=== PATIENT | female | born 1960 | race Caucasian/White ===

== ENCOUNTER 2019-01-13 10:40 | Outpatient (CLI) | payer MEDICARE, MEDICAID, SELFPAY ==
--- NOTE | 2019-01-13 10:34 | DI.RAD_ITS ---
SYMPTOMS/DIAGNOSIS: PAIN RIGHT KNEE: Comparison is made with [id number]. Since the previous exam, there is now narrowing of moderate to severe degree of the lateral femoral tibial joint space. There is periarticular spurring as well as sclerosis. The medial femoral tibial joint space is well maintained and shows no significant spurring. There is mild spurring at the articular aspect of the patella. A joint effusion is seen. IMPRESSION: Moderate to severe degenerative changes of the lateral femoral tibial joint. Mild patellofemoral joint degenerative changes.
== END 2019-01-13 11:00 ==
PROVIDERS: PCP Family Medicine; Referring Provider Family Medicine; Visit Provider Orthopaedic Surgery
DX: M25.561 Pain in right knee (principal); M17.11 Unilateral primary osteoarthritis, right knee; G43.009 Migraine without aura, not intractable, without status migrainosus
CPT/HCPCS: 20610; 64405; 99211; 99212; 73560; J1040

== ENCOUNTER 2019-03-04 11:38 | Outpatient (CLI) | payer MEDICARE, MEDICAID, SELFPAY ==
--- NOTE | 2019-03-04 06:00 | DI.RAD_ITS ---
SYMPTOM/DIAGNOSIS: SACROILIAC JOINT DYSFUNCTION PAIN CLINIC: Fluoroscopy Time: 25.0 seconds/6.61mGy Images submitted from the Pain Clinic demonstrate needle localization over the right SI joint in conjunction with an injection carried out by Dr. Garrison. Please see the procedure report for further information.
[2019-03-04 12:23] VITALS: BP 145/85; PULSE 65; RESP 18; TEMP 36.8; O2SAT 97
[2019-03-04] MEDS: Bupivacaine 0.5% Pres-Free 10 ML VIAL IJ (12:33)
[2019-03-04] MEDS: methylPREDNISolone ACETATE 80 MG/ML VIAL IJ (12:41)
[2019-03-04] MEDS: Omnipaque 240 MG/ML 50 ML BTL IJ (12:41)
--- NOTE | 2019-03-04 12:42 | PDOC.PAIN ---
Pain Clinic Procedure Note Current Active Problems Problem Status Onset Sacroiliac joint dysfunction of right side Chronic INTRA-ARTICULAR SI JOINT INJECTION MERI HUTCHINSON has been referred to the [facility] for intra-articular SI joint injection. COMMENTS: Patient had multiple injections including several facet injections as well as SI joint injections on the right side. Her last one was approximately a year ago. Patient was interviewed and the medical record reviewed. There were no medical, pharmacologic, radiographic or other structural contraindications to attempting fluoroscopically guided intra-articular SI joint injection. Risks and expected side effects as well as potential benefit of the procedure were reviewed and voiced concerns addressed. The printed consent form was signed and witnessed. Standard time-out procedure was performed. Patient was placed in the prone position on the fluoroscopy table and automated blood pressure cuff and pulse oximeter applied. The skin entry point for approaching {right/ } SI joints was identified under the most advantageous fluoroscopic view and marked. Following thorough Chlorhexadine preparation of the skin and draping and 1% lidocaine infiltration of the skin entry point and subcutaneous tissues, a 22 gauge spinal needle was placed under fluoroscopic guidance into {right/ } SI joints was identified under the most advantageous fluoroscopic view and marked. Following thorough Chlorhexadine preparation of the skin and draping and 1% lidocaine infiltration of the skin entry point and subcutaneous tissues, a 22 gauge spinal needle was placed under fluoroscopic guidance into { right/ } SI joint. Intra-articular placement was confirmed by a clear arthrogram resulting from the injection of 0.25ml Omnipaque 240, 1ml 0.5% bupivacaine, and half ml (40mg) of 80mg concentration Depomedrol were injected intra-articularily with an initial reproduction of a significant component of the usual pain. Vital signs were stable throughout the procedure and were as recorded in the docflowsheet by the nursing staff. If given, dosages of intravenous drugs for anxiolysis and analgesia were documented in MAR. Follow up plans and appointments were discussed with the patient. Post procedure instruction was given as documented in nursing documentation and having met discharge criteria, and was discharged from the [facility]. COMMENTS: Pain went 07/02 to 01/30. Pt will f/u prn. Plan for genicular N block Right. Consider L SI inj CC: [employer] Ayou[employer]
[2019-03-04 12:45] VITALS: BP 145/85; PULSE 65; RESP 18; O2SAT 97
== END 2019-03-04 11:58 ==
PROVIDERS: PCP Family Medicine; Visit Provider Anesthesiology Pain Medicine
DX: M53.3 Sacrococcygeal disorders, not elsewhere classified (principal)
CPT/HCPCS: 27096; 72200; J1040; Q9967

== ENCOUNTER 2019-03-17 08:08 | Outpatient (CLI) | payer MEDICARE, MEDICAID, SELFPAY ==
--- NOTE | 2019-03-17 06:00 | DI.RAD_ITS ---
SYMPTOMS/DIAGNOSIS: KNEE PAIN C-ARM FLUOROSCOPY OF THE RIGHT KNEE: Fluoroscopy Time: 28.6 sec Fluoroscopy was provided for guidance with pain clinic injection. Please see procedure note for details.
[2019-03-17 08:20] VITALS: BP 109/71; PULSE 60; RESP 20; TEMP 36.6; O2SAT 95
[2019-03-17] MEDS: Omnipaque 240 MG/ML 50 ML BTL IJ (09:16)
[2019-03-17] MEDS: Bupivacaine 0.5% Pres-Free 10 ML VIAL IJ (09:16)
[2019-03-17 09:17] VITALS: BP 116/70; PULSE 64; RESP 12; O2SAT 95
--- NOTE | 2019-03-17 09:23 | PDOC.PAIN ---
Pain Clinic Procedure Note Current Active Problems Problem Status Onset Osteoarthritis of right knee Acute RIGHT GENICULAR NERVE BLOCK Date of Service: March 17, 2019 Patient: MERI HUTCHINSON Provider: , MPH COMMENTS: She was seen in this clinic on 02/10/19 by Ms. Conklin. I did review her note. Pre-procedure VAS to the RIGHT knee is 8/10. MERI HUTCHINSON has been referred to the [facility] for RIGHT genicular nerve block. MERI was interviewed and the medical record reviewed. There were no medical, pharmacologic, radiographic or other structural contraindications to attempting fluoroscopically guided RIGHT genicular nerve block. Risks and potential side effects as well as potential benefit of the procedure were reviewed with MERI , and HER voiced concerns were addressed. After I believed that the patient was completely informed, the printed consent form was signed. Standard time-out procedure was performed. MERI was placed in the supine position on the fluoroscopy table and automated blood pressure cuff and pulse oximeter applied. The skin entry points for approaching RIGHT superolateral genicular nerve, the superomedial genicular nerve and the inferomedial genicular was identified under the most advantageous fluoroscopic view and marked. Following thorough Chlorhexadine preparation of the skin and draping, 1% lidocaine infiltration of the skin entry point and subcutaneous tissues was accomplished using a 1.5 25G needle. Next, the 3.5 25G spinal needle was advanced to os at the location of the specific nerve root using fluoroscopic guidance. Next, 1 cc of 1% Lidocaine was injected at each site. The needles were removed without difficulty. MERI's vital signs were stable throughout the procedure and were as recorded in the docflowsheet by the nursing staff. If given, dosages of intravenous drugs for anxiolysis and analgesia were documented in MAR. Follow up plans and appointments were discussed with the MERI . Post procedure instruction was given as documented in nursing documentation and having met discharge criteria, MERI was discharged from the [facility]. COMMENTS: No complications. Post-procedure VAS to the RIGHT knee is 1/10. The patient will keep track of her RIGHT knee pain over the next four hours. If MERI has sufficient pain relief, MERI will be a candidate for radiofrequency ablation at the same nerves. Binu WJ1, Jennifer SJ, Stas JG, Varun WeissG, Chito KOENIG, Opal PH, Freddie JW. Radiofrequency treatment relieves chronic knee osteoarthritis pain: a double-blind randomized controlled trial. Pain. 2010;152(3):481-7. doi: 10.1016/j.pain.2010.09.029. Tete S1, Alex ON2, Ashvin Y3, ?zl?syl P2, Juno U1, Murphy ?m?rl? I. Which one is more effective for the clinical treatment of chronic pain in knee osteoarthritis: radiofrequency neurotomy of the genicular nerves or intra-articular injection? Int J Rheum Dis. 2016 May 04. F/U with our office by phone to let us know the 1-4 hour post-procedure pain levels. I personally performed this entire procedure. Hipolito Steve DO, MPH Attending Physician
--- NOTE | 2019-03-17 09:27 | PDOC.PAIN_ITS ---
Pain Clinic Procedure Note Current Active Problems Problem Status Onset Osteoarthritis of right knee Acute RIGHT GENICULAR NERVE BLOCK Date of Service: March 17, 2019 Patient: MERI HUTCHINSON Provider: , MPH COMMENTS: She was seen in this clinic on 02/10/19 by Ms. Conklin. I did review her note. Pre-procedure VAS to the RIGHT knee is 8/10. MERI HUTCHINSON has been referred to the [facility] for RIGHT genicular nerve block. MERI was interviewed and the medical record reviewed. There were no medical, pharmacologic, radiographic or other structural contraindications to attempting fluoroscopically guided RIGHT genicular nerve block. Risks and potential side effects as well as potential benefit of the procedure were reviewed with MERI , and HER voiced concerns were addressed. After I believed that the patient was completely informed, the printed consent form was signed. Standard time-out procedure was performed. MERI was placed in the supine position on the fluoroscopy table and automated blood pressure cuff and pulse oximeter applied. The skin entry points for appro aching RIGHT superolateral genicular nerve, the superomedial genicular nerve and the inferomedial genicular was identified under the most advantageous fluoroscopic view and marked. Following thorough Chlorhexadine preparation of the skin and draping, 1% lidocaine infiltration of the skin entry point and subcutaneous tissues was accomplished using a 1.5 25G needle. Next, the 3.5 25G spinal needle was advanced to os at the location of the specific nerve root using fluoroscopic guidance. Next, 1 cc of 1% Lidocaine was injected at each site. The needles were removed without difficulty. MERI's vital signs were stable throughout the procedure and were as recorded in the docflowsheet by the nursing staff. If given, dosages of intravenous drugs for anxiolysis and analgesia were documented in MAR. Follow up plans and appointments were discussed with the MERI . Post procedure instruction was given as documented in nursing documentation and having met discharge criteria, MERI was discharged from the [facility]. COMMENTS: No complications. Post-procedure VAS to the RIGHT knee is 1/10. The patient will keep track of her RIGHT knee pain over the next four hours. If MERI has sufficient pain relief, MERI will be a candidate for radiofrequency ablation at the same nerves. Binu WJ1, Jennifer SJ, Stas JG, Varun JG, Chito KOENIG, Opal PH, Freddie JW. Radiofrequency treatment relieves chronic knee osteoarthritis pain: a double-blind randomized controlled trial. Pain. 2011 Nov;152(3):481-7. doi: 10.1016/j.pain.2010.09.029. Tete S1, Alex ON2, Ashvin Y3, ?zl?syl P2, Juno U1, Murphy ?m?rl? I. Which one is more effective for the clinical treatment of chronic pain in knee osteoarthritis: radiofrequency neurotomy of the genicular nerves or intra- articular injection? Int J Rheum Dis. 2016 May 04. F/U with our office by phone to let us know the 1-4 hour post-procedure pain levels. I personally performed this entire procedure. Hipolito Steve DO, MPH Attending Physician
== END 2019-03-17 08:28 ==
PROVIDERS: PCP Family Medicine; Visit Provider Preventive Medicine Occupational Medicine
DX: M17.11 Unilateral primary osteoarthritis, right knee (principal)
CPT/HCPCS: 64640 ×3; 77002; Q9967

== ENCOUNTER 2019-03-31 09:36 | Outpatient (CLI) | payer MEDICARE, MEDICAID, SELFPAY ==
--- NOTE | 2019-03-31 06:49 | DI.RAD_ITS ---
SYMPTOM/DIAGNOSIS: RIGHT KNEE PAIN C-ARM FLUOROSCOPY: 03/31/19 Fluoroscopy Time: 42.5sec, 2.49mgy C-arm fluoroscopy was utilized by Dr. Steve. Please see Dr. Steve's procedure note. Hard copies show needle placement adjacent to distal right femur and proximal right tibia.
[2019-03-31 10:05] VITALS: BP 123/82; PULSE 69; RESP 18; TEMP 36.9; O2SAT 95
[2019-03-31] MEDS: fentaNYL 100 MCG/2 ML VIAL IVP (10:46)
[2019-03-31] MEDS: Midazolam 2 MG/2 ML VIAL IVP (10:47)
[2019-03-31] MEDS: Lactated Ringers 1,000 ML 80 ML IV (10:48)
[2019-03-31 11:08] VITALS: BP 152/75; PULSE 60; RESP 15; O2SAT 94
--- NOTE | 2019-03-31 12:02 | PDOC.PAIN_ITS ---
Pain Clinic Procedure Note Current Active Problems Problem Status Onset Osteoarthritis of right knee Acute RIGHT GENICULAR NERVE RADIOFREQUENCY ABLATION Date of Service: March 31, 2019 Patient: MERI HUTCHINSON Provider: , MPH COMMENTS: Previous Genicular nerve block to the RIGHT knee. MERI HUTCHINSON has been referred to the [facility] for RIGHT genicular nerve radiofrequency ablation. MERI was interviewed and the medical record reviewed. There were no medical, pharmacologic, radiographic or other structural contraindications to attempting fluoroscopically guided RIGHT genicular nerve radiofrequency ablation. Risks and potential side effects as well as potential benefit of the procedure were reviewed with MERI HUTCHINSON , and HER voiced concerns were addressed. After I believed that the patient was completely informed, the printed consent form was signed. Standard time-out procedure was performed. MERI was placed in the supine position on the fluoroscopy table and automated blood pressure cuff and pulse oximeter applied. The skin entry points for approaching RIGHT superolateral genicular nerve, the superomedial genicular nerve and the inferomedial genicular was identified under the most advantageous fluoroscopic view and marked. Following thorough Chlorhexadine preparation of the skin and draping, 1% lidocaine infiltration of the skin entry point and subcutaneous tissues was accomplished using a 1.5 25G needle. Next, the 10 cm 18G RF Cannula with a 10 mm active tip was advanced to os at the location of the specific nerve roots (3) using fluoroscopic guidance. Next, sensory and motor testing was performed and no abnormal findings were found. Next, 1 cc of 2% Lidocaine was injected at each site. The lesion was then created with 80 degrees C for 90 seconds. Each needle was advance 1 cm and the lesion was completed again. Each cannula was advanced until the tip reached the posterior aspect of the bone shaft. 1/3 cc of Depomedrol (40 mg/cc) was then injected at each site followed by 2 cc of 0.5% Bupivacaine as the needle was withdrawn. The needles were removed without difficulty. MERI's vital signs were stable throughout the procedure and were as recorded in the docflowsheet by the nursing staff. If given, dosages of intravenous drugs for anxiolysis and analgesia were documented in MAR. Follow up plans and appointments were discussed with the MERI HUTCHINSON . Post procedure instruction was given as documented in nursing documentation and having met discharge criteria, MERI was discharged from the [facility]. COMMENTS: No complications. Binu WJ1, Jennifer SJ, Stas JG, Varun JG, Dale KOENIG, Park PH, Frazier JW. Radiofrequency treatment relieves chronic knee osteoarthritis pain: a double-blind randomized controlled trial. Pain. 2010;152(3):481-7. doi: 10.1016/j.pain.2010.09.029. Tete S1, Alex ON2, Ashvin Y3, ?zl?syl P2, Juno U1, Murphy ?m?rl? I. Which one is more effective for the clinical treatment of chronic pain in knee osteoarthritis: radiofrequency neurotomy of the genicular nerves or intra- articular injection? Int J Rheum Dis. 2016 May 04. F/U with our office or her PCP prn I personally performed this entire procedure. Hipolito Steve DO, MPH Attending Physician
[2019-03-31] MEDS: Lidocaine 2% Pres-Free 5 ML VIAL IJ (12:06)
[2019-03-31] MEDS: Bupivacaine 0.5% Pres-Free 10 ML VIAL IJ (12:07)
[2019-03-31] MEDS: methylPREDNISolone ACETATE 40 MG/ML VIAL IJ (12:07)
== END 2019-03-31 09:56 ==
PROVIDERS: PCP Family Medicine; Visit Provider Preventive Medicine Occupational Medicine
DX: M17.11 Unilateral primary osteoarthritis, right knee (principal)
CPT/HCPCS: 64640 ×3; 77002; J1030; J2250; J3010

== ENCOUNTER → 2019-05-20 10:32 | Outpatient (BNVA) | payer MEDICARE, MEDICAID, SELFPAY | PROVIDERS: PCP Family Medicine; Referring Provider Family Medicine; Visit Provider Orthopaedic Surgery | DX: M17.11 Unilateral primary osteoarthritis, right knee (principal); Z98.890 Other specified postprocedural states | CPT/HCPCS: 99213 ==

== ENCOUNTER 2019-06-17 13:55 | Outpatient (CLI) | payer MEDICARE, MEDICAID, SELFPAY ==
--- NOTE | 2019-06-17 13:07 | W.PREOPHP ---
Assessment and Plan Assessment and plan (1) Osteoarthritis of right knee: Status: Chronic Assessment and plan: Plan: Educated patient on surgery covering surgical technique, recovery process, benefits and risks including but not limited to risk of infection, blood clot, damage to soft tissue/blood vessels/nerves in detail. After discussion patient gives verbal understanding of risks and elects to proceed with scheduling surgery. Patient had opportunity to have questions answered to their satisfaction. They will contact office if issues arise. Patient will continue to be scheduled for right TKA with Dr. West. Qualifiers: Osteoarthritis type: unspecified Qualified Code(s): M17.11 - Unilateral primary osteoarthritis, right knee History of Present Illness Narrative: Ms. Hernandez is a 59-year-old female who presents to clinic for pre-operative visit for scheduled right TKA. Reports greater than 1 year history of chronic knee pain. Has received several injections and reports having OA procedure done by Dr. Steve at pain clinic. Depo-Medrol injections only provided about 3 weeks of pain relief. Constant aching pain is located diffusely along the knee but is sometimes aggravated by positioning in bed, prolonged standing and walking. Reports knee feels weak and gives out but denies any recent direct injury to the knee. States 1.5 years ago fell on ice landing directly on the right knee which caused her to continue to have right knee pain. Denies locking, muscle weakness, numbness or tingling. Due to her continued pain she was offered surgical intervention and was eager to proceed. Pertinent Surgical Information Denies past medical history of: Hypertension, stroke, cardiac issues, angina, asthma, sleep apnea, renal issues, liver issues, hepatitis, gastrointestinal issues, ulcers, hyperlipidemia, bleeding disorders, seizures, diabetes, autoimmune disorders, thyroid issues Denies prior complications from surgery or anesthesia. Review of Systems Constitutional Constitutional: Denies fever(s), Denies frequent falls and Denies headache(s) Eyes Eyes: Denies change in vision ENT Ears, Nose, Mouth, and Throat: Denies dizziness, Denies ear discharge, Denies headache(s), Denies epistaxis, Denies nasal discharge and Denies sore throat Cardiovascular Cardiovascular: Denies chest pain, Denies rapid heart rate, Denies irregular heart rhythm, Denies palpitations, Denies dyspnea, Denies dyspnea on exertion, Denies orthopnea, Denies paroxysmal nocturnal dyspnea and Denies slow heart rate Respiratory Respiratory: Denies cough, Denies dyspnea, Denies dyspnea on exertion and Denies wheezing Gastrointestinal Gastrointestinal: Denies abdominal pain, Denies melena, Denies hematochezia, Denies constipation, Denies diarrhea, Denies nausea and Denies vomiting Genitourinary Genitourinary: Denies hematuria, Denies dysuria and Denies urinary urgency Musculoskeletal Musculoskeletal: Reports as per HPI, Denies numbness and Denies tingling Neurologic Neurologic: Denies dizziness, Denies frequent falls, Denies headache(s), Denies numbness and Denies tingling Psychiatric Psychiatric: Denies anxiety and Denies depression Endocrine Endocrine: Denies palpitations Allergic/Immunologic Allergic/Immunologic: Denies wheezing [facility]LY [facility] Medical History (Updated 06/17/19 @ 13:55 by Dea Recinos) Anxiety (Chronic) Arthropathy (Acute) Colitis (Acute) Degeneration of intervertebral disc (Acute) Depressive disorder (Acute) Fibrocystic disease of breast (Acute) Lichen sclerosus of female genitalia (Acute) Lumbosacral radiculopathy (Acute) Migraine (Chronic) Somatization disorder (Acute) Varicose veins of lower extremity (Acute) Surgical History (Updated 06/17/19 @ 13:21 by Dea Recinos) History of bunionectomy (Acute) History of carpal tunnel release (Acute) History of section (Chronic) History of colonoscopy (Chronic) History of hernia repair (Chronic) Hiatal hernia Right inguinal hernia History of surgical removal of ganglion cyst (Acute) Family History (Updated 06/17/19 @ 13:23 by Dea Recinos) Father Diabetes Heart disease Myocardial infarction Brother Heart disease DUNCAN Status post heart valve repair Mother Cancer Unknown Diabetes Borderline Social History (Updated 06/17/19 @ 13:25 by Dea Recinos) Smoking/Tobacco Use Status: Current-Occasional Tobacco Type: cigarettes Years smoked: 35 Alcohol Intake: never Drug use: Never Substance use type: does not use current occupation: disabled Current gender identity: female Meds Home Medications and Allergies Home Medications Medication Instructions Recorded Confirmed Type Melatonin 5 Mg 10 mg PO HS 04/06/14 05/20/19 History Vitamin E 400 iu PO DAILY 04/06/14 05/20/19 History ascorbic acid (vitamin C) [Vitamin 1,000 mg PO DAILY 04/06/14 05/20/19 History C] calcium-vitamin D3-vitamin K 1 ea PO DAILY tab.chew 04/06/14 05/20/19 History citalopram 40 mg PO BID tab-cap 04/06/14 05/20/19 History clonazepam 2 mg PO HS tab-cap 04/06/14 05/20/19 History fluticasone furoate [Veramyst] 50 mcg NS BID spray 04/06/14 05/20/19 History meclizine 25 mg PO PRN tab-cap 04/06/14 05/20/19 History metoprolol succinate 50 mg PO DAILY tab-cap 04/06/14 05/20/19 History magnesium 400 mg PO DAILY 01/17/16 05/20/19 History tizanidine 2 mg PO BID tab-cap 08/07/16 05/20/19 History omega 4-oeg-siv-fish oil 1 ea PO DAILY 05/09/17 05/20/19 History varenicline [Chantix] 0.5 mg PO PRN PRN 05/09/17 05/20/19 History budesonide 3 mg PO DAILY 11/13/17 05/20/19 History hydroxyzine HCl 1 - 2 tab PO once prn #60 tab-cap 11/13/17 05/20/19 Rx cetirizine 10 mg PO DAILY tab-cap 02/12/18 05/20/19 History albuterol sulfate [Ventolin Hfa] 2 puff INHALATION DAILY 02/14/18 05/20/19 History hydrocodone-acetaminophen 1 tab PO Q6H PRN PRN #20 tab 02/19/18 05/20/19 Rx ibuprofen 600 mg PO TID #30 tab 02/19/18 05/20/19 Rx aspirin 81 mg chewable tablet 81 mg PO DAILY #90 tab-cap 11/25/18 05/20/19 Rx esomeprazole magnesium 20 mg PO DAILY 03/23/19 05/20/19 History fluticasone propionate 2 spray INTRANASAL DAILY 03/23/19 05/20/19 History halobetasol propionate 1 applic TOPICAL DAILY 03/23/19 05/20/19 History hydrocortisone acetate 25 mg [place] DAILY 03/23/19 05/20/19 History loratadine 10 mg PO DAILY 03/23/19 05/20/19 History meloxicam 15 mg PO DAILY 03/23/19 05/20/19 History naloxone [Narcan] 1 spray INTRANASAL ONCE PRN 03/23/19 05/20/19 History nitroglycerin [Nitrostat] 0.4 mg SUBLINGUAL Q5-15M PRN 03/23/19 05/20/19 History oxybutynin chloride 5 mg PO DAILY 03/23/19 05/20/19 History sumatriptan succinate 100 mg PO ONCE 03/23/19 05/20/19 History Allergies Allergy/AdvReac Type Severity Reaction Status Date / Time No Known Allergies Allergy Unverified 06/17/19 13:25 Exam Const General: cooperative and no acute distress [facility] Head: normal to inspection, normocephalic and atraumatic Ears: external ears normal General nose exam: external nose normal and no nasal discharge Face and sinus: face symmetric Mouth: oral mucosae normal, lip normal, tongue normal and moist mucous membranes Teeth and gingiva: fair dentition Throat: posterior oropharynx normal Eyes General: appearance normal, both eyes and all related structures Pupils: PERRL EOM: EOM intact bilaterally Neck Neck: trachea midline Carotids: normal carotid upstroke Lymphatic: no lymphadenopathy noted Resp Effort & Inspection: normal respiratory effort and able to speak in complete sentences Auscultation: clear to auscultation bilaterally, no rales, no rhonchi and no wheezes Cardio Heart Sounds: S1 normal, S2 normal and no murmurs Pulses: radial pulses present bilaterally GI Palpation: soft, no hepatosplenomegaly and nontender Auscultation: normal bowel sounds Skin General skin exam: no rashes or lesions noted
[2019-06-17 15:07] LABS: Abs Immature Grans 0.02 k/cumm (0.0-0.09); Absolute Basophil Count 0.03 k/cumm (0.0-0.2); Absolute Eosinophil Count 0.15 k/cumm (0.0-0.7); Absolute Lymphocyte Count 2.55 k/cumm (1.2-3.4); Absolute Monocyte Count 0.52 k/cumm (0.11-0.7); Basophils % 0.4; Eosinophils % 1.8; HCT 43.1 % (36.0-46.0); HGB 14.6 g/dL (12.0-15.5); Immature Grans % 0.2; Lymphocytes % 30.1; Mean Corp. HGB Concentration 33.9 g/dL (32.0-36.0); Mean Corpuscular Hemoglobin 32.2 pg (27.0-33.0); Mean Corpuscular Volume 95.1 fL (80-95); Monocytes % 6.1; Neutrophils % 61.4; Platelet Count 314 x1000/uL (130-400); RBC 4.53 m/cumm (4.00-5.20); RBC Distribution Width 11.8 % (11.7-14.6); White Blood Cell Count 8.47 k/cumm (4.4-10.8)
== END 2019-06-17 14:15 ==
PROVIDERS: PCP Family Medicine; Visit Provider Orthopaedic Surgery
DX: M25.561 Pain in right knee (principal); M17.11 Unilateral primary osteoarthritis, right knee; Z01.812 Encounter for preprocedural laboratory examination; Z01.818 Encounter for other preprocedural examination
CPT/HCPCS: 36415; NC; 85025

== ENCOUNTER 2019-06-22 06:01 | Inpatient (IN) | payer MEDICARE, MEDICAID, SELFPAY ==
[2019-06-22] VITALS (15 sets, daily range): BP systolic 94–124; BP diastolic 48–89; PULSE 68–93; RESP 13–19; TEMP 36.2–36.8; O2SAT 92–97
[2019-06-22] MEDS: Lactated Ringers 1,000 ML 80 ML IV ×3 (06:46→13:12)
[2019-06-22] MEDS: Bupivacaine 0.5% Pres-Free 30 ML VIAL (07:16)
[2019-06-22] MEDS: Bupivacaine LIPOSOME/PF 133 MG/10 ML VIAL IJ (07:16)
[2019-06-22] MEDS: ceFAZolin 2 GM/50 ML BAG IVPB (07:38)
[2019-06-22] MEDS: Hydrogen Peroxide 3% 480 ML BTL (09:03)
--- NOTE | 2019-06-22 10:45 | DI.RAD_ITS ---
EXAM: XR KNEE RT 2V AP,LAT INDICATION: check total knee components in RR. COMPARISON: XR knee RT 2V AP,lat from 01/13/2019 TECHNIQUE: 2D digital imaging was performed. FINDINGS: The patient is now status post right total knee replacement. The orthopedic hardware appears in good position. The bones are intact. Skin guera are present. Postsurgical changes are seen in the so ft tissues. IMPRESSION: Status post right total knee replacement.
[2019-06-22] MEDS: oxyCODONE-CR 10 MG TABCR PO (12:29)
[2019-06-22] MEDS: Nicotine 21 MG/24 HR PATCH TD (12:29)
[2019-06-22] MEDS: Ketorolac 30 MG/ML VIAL IVP ×2 (12:29→17:23)
[2019-06-22] MEDS: Normal Saline Flush 10 ML SYR IV ×2 (12:30→17:24)
[2019-06-22] MEDS: Docusate Sodium 100 MG CAP PO ×2 (14:13→20:57)
--- NOTE | 2019-06-22 15:09 | ROE_ITS ---
DATE OF PROCEDURE: June 22, 2019 PREOPERATIVE DIAGNOSIS: Osteoarthritis right knee. POSTOPERATIVE DIAGNOSIS: Osteoarthritis right knee. PROCEDURE: Right total knee arthroplasty. COMPONENTS USED: 1. Size 2.5 posterior cruciate-substituting femoral component. 2. Size 2.5 tibial component. 3. 32 mm tri-pronged patella. 4. 12.5, size 2.5 posterior cruciate-substituting polyethylene insert. All components were cemented. ANESTHESIA: General, Hipolito Ricardo CRNA SURGEON: Vipul West M.D. HRIS ADMINISTRATOR: Cindy Wade INDICATIONS: This is a 59-year-old white female with progressive disability due to osteoarthritis of her right knee. She has been treated conservatively for years, but it finally reached the point whe re her pain was debilitating and affecting activities of daily living. Total knee replacement was re commended to alleviate her pain and hopefully restore some of her previous ambulatory abilities. The risks and complications of the procedure were explained to the patient in detail preoperatively. PROCEDURE: The patient was taken to the Operating Room on 06/22/19. She was placed supine on the ope rating table. A femoral nerve block was administered and then a general anesthetic was administered. A proximal tourniquet was applied to the right upper thigh and the right lower extremity was preppe d from toes to tourniquet and draped free in the usual sterile fashion. Under proximal tourniquet control, an anterior midline incision was made beginning four inches proxim al to the patella and extending to the tibial tubercle distally. The incision was carried down to th e fascia. A medial parapatellar capsular incision was made that was extended proximally and longitud inally in line with the quadriceps tendon. A medial subperiosteal release was performed. The patell a was everted and the knee was hyperflexed. Medial and lateral meniscectomies were performed. Anter ior and posterior cruciate ligaments were sacrificed. The distal femur was then resected using intra medullary alignment guides and jigs. The patient was found to require a size 2.5 femoral component. A box cut was made to accommodate the posterior cruciate-sacrificing component. The proximal tibia was then resected using extramedullary alignment guides and jigs. The resection w as referenced from the damaged lateral tibial plateau. The patient was found to require a size 2.5 f emoral component. The keel of the tibial component was then reamed and punched out in proper rotatio n alignment. Finally the patella was resected using the patellar resection guide. Initial thicknes s was 24 mm and 8 mm thickness of the patella was excised. Using the drill guide for the 32 mm tri-p ronged patella, the holes for the tri-pronged patella were then drilled out in proper rotation alignm ent. The proximal tibia was prepared for cementing with pulse irrigation lavage of saline solution and dry ing with peroxide-soaked strip sponges. One batch of gentamicin-impregnated methylmethacrylate was v acuum-mixed and was hand-packed onto the prepared proximal tibia and on the undersurface of the tibia l component. The tibial component was then inserted and impacted into placed with an impactor and ma llet and further pressurized by using the trial components and extending the knee. Excess cement was trimmed from the margins of the tibial component while the cement was still soft using the plastic c ement removal tool. When the first batch of gentamicin-impregnated methylmethacrylate had cured, the trial components were removed. The distal femur and patella were then prepared for cementing with p ulse irrigation lavage of saline solution and drying with peroxide-soaked strip sponges. Another bat ch of gentamicin-impregnated methylmethacrylate was vacuum-mixed and hand-packed onto the prepared fe mur and patella. The femoral component was impacted into place with the impactor and mallet. The fe moral component was then pressurized by using the trial insert and extending the knee. The patellar component was inserted and pressurized using the patellar clamp. Excess cement was trimmed from the margins of the patella and femoral component while the cement was still soft using the plastic cement removal tool. The hole entering the intramedullary canal for the femoral guide was plugged with res ected bone from the distal femur prior to cementing. When the second batch of methylmethacrylate had cured, the trial insert was removed. The posterior recesses were checked and any residual bone or c ement debris was removed at this time. Osteophytes on the posterior condyles posterior to the femora l component were resected using an osteotome and a mallet. Through trial reductions, it was felt rangel t a 12.5 mm thick insert provided the best stability to stressing through flexion, while still allowi ng the knee to come to full extension. The actual insert, 2.5 x 12.5 mm posterior cruciate-substitut ing, was then placed on the tibial component and then reduced onto the femoral condyles. Patella tra cking was checked using the [id number]-go-thumb. The patella tended to track a little laterally and the refore the lateral retinaculum was released using pie-crusting technique. The wound margins were inf iltrated with 0.5% Marcaine with an epinephrine solution. The medial parapatellar capsular incision and the incision in the quad tendon were repaired with interrupted [id number] sutures of #1 Vicr yl suture material. An additional 10 cc's of 0.5% Marcaine with an epinephrine solution was instille d into the knee joint for postoperative analgesia. The subcu was approximated with interrupted #2-0 Vicryl sutures. The skin edges were approximated with skin guera. Sterile dressings were applied followed by a Huntley compressive dressing from toes to groin. The knee had been irrigated with Betadi ne and saline solution prior to beginning closure. The patient received one gram of tranexamic acid prior to tourniquet inflation and a second gram of tranexamic acid when the tourniquet was deflated. A knee immobilizer splint was placed over the compression dressing to maintain the knee in extension . The patient tolerated the procedure well and experienced no intraoperative complications. Blood l oss was minimal due to tourniquet use. The patient was discharged to the recovery room in good condi tion.
--- NOTE | 2019-06-22 16:31 | PT.INIE ---
Date of service: 06/22/19 Time of Service: 13:02 PT Notes Inpatient Physical Therapy Evaluation Date: 06/22/2019 Referring Doctor: Vipul West MD PT Orders: PT CONSULT: S/P Ortho Surgery Precautions: Fall. Standard. Patient Profile/Admitting Diagnosis: Patient is a 59 year old female s/p R TKA due to primary unilateral osteoarthritis of right knee. PMHX: Medical History (Updated 06/17/19 @ 13:55 by Dea Recinos) Anxiety (Chronic) Arthropathy (Acute) Colitis (Acute) Degeneration of intervertebral disc (Acute) Depressive disorder (Acute) Fibrocystic disease of breast (Acute) Lichen sclerosus of female genitalia (Acute) Lumbosacral radiculopathy (Acute) Migraine (Chronic) Somatization disorder (Acute) Varicose veins of lower extremity (Acute) Surgical History (Updated 06/17/19 @ 13:21 by Dea Recinos) History of bunionectomy (Acute) History of carpal tunnel release (Acute) History of section (Chronic) History of colonoscopy (Chronic) History of hernia repair (Chronic) Hiatal hernia Right inguinal hernia History of surgical removal of ganglion cyst (Acute) Social History/Home Situation: Patient lives alone in a one story home with two steps to enter and rails on both sides. Daughter lives close by and is able to provide needed help. Patient is independent with all aspects of ADLs without the need for an assitive ambulatory device nor adaptive equipment. Equipment Owned/DME: None Subjective: Patient does not report any pain but with ambulation she says ?I can feel it?. She is surprised that she does not have any restrictions in terms of weight-bearing. She is agreeable to a PT evaluation and denies headache, dizziness, and lightheadedness. Objective: General Observation: Patient is seen laying supine in bed with HOB elevated, wearing ELOY stocking on L LE, IV in R UE, and Knee immobilizer over Huntley dressing on R LE. Mental Status: Aware of person, place, time but says things that don?t make sense, most likely due to medication. Pain: 0/10 ROM: Right Lower Extremity: Hip flexion decreased. Hip abduction WFL. Knee flexion NT due Huntley dressing and knee immobilizer. Ankle dorsiflexion WFL. Ankle plantarflexion WFL. Left Lower Extremity: Hip flexion WFL. Hip abduction WFL. Knee flexion WFL. Ankle dorsiflexion WFL. Ankle plantarflexion WFL. Strength: Right Lower Extremity: Hip flexors 3-/5. Hip abductors 5/5. NT. Knee extensors Knee flexion NT due Huntley dressing and knee immobilizer. Ankle dorsiflexors 3/5. Ankle plantarflexors 3/5. Left Lower Extremity:Hip flexors 3/5. Hip abductors 5/5. Knee flexors 4/5. Knee extensors 5/5. Ankle dorsiflexors 5/5. Ankle plantarflexors 5/5. Bed Mobility/Transfers: Rolling I Supine to sit I Sit to supine I Sit to stand SBA Stand to sit SBA Bed to chair CGA Chair to bed CGA Gait: Patient ambulated 30? with CGA and wheelchair follow. She exhibited a step to gait pattern using a FWW with decreased step length, and overall gait speed. Reports that there is no pain but that she feels it' on her operated side. Balance: Static Sitting: Normal Dynamic Sitting: Normal Static Standing: Fair Dynamic Standing: Fair Special Tests: Mobility Limitations Standardized Measure [facility] 6 clicks Basic Mobility Inpatient Short Form: Raw Score: 21 CMS Score: 33% Informed Consent/Education: Patient instructed in purpose of PT consult and plan of care. Assessment: Patient is a 59 year old female s/p R TKA POD 0. She lives alone in a one story home but has a daughter that lives nearby. Ms. Hernandez states that she has ?the best neighbors? to help and support her during her recovery. Her prognosis is good. She presents with decreased step length, impaired balance, and decreased gait speed. She also has decreased strength in both lower extremities, and decreased ROM on the R due to post-surgical wraps. Patient presents with clinical signs and symptoms consistent with current/admitting diagnoses that have resulted to mobility limitations, gait instability, generalized weakness, and impairment of motor control as demonstrated by the following impairment level findings: 1. Decreased strength to R LE major muscle groups 2. Impaired sitting/standing balance 3. Impaired activity tolerance 4. Limitation of joint range of motion in R knee flexion/extension. Impairments are contributing to the following functional limitations: 1. Dependent bed mobility skills 2. Increased dependence with transfers 3. Inability to safely ambulate without assistive device and physical assistance 4. Increase completion time for mobility ADL performance 5. Increased fall risk 6. Inability to negotiate steps alone safely Patient is assessed as a 31623 moderate complexity based on the following: History: Relevant medical history includes anxiety, depression, somatization disorder, and lumbosacral radiculopathy Examination: Demonstrable impairment in strength, balance, and range of motion with underlying impairments and functional limitations as documented above Presentation: Evolving Decision Makin moderate complexity Goals: Goals X1 week 1. R Knee extension 0 degrees. 2. R knee flexion 100 degrees. 3. Sit-Stand independent 4. Stand-Sit independent 5. Bed-Chair independent 6. Chair-Bed independent 7. Independent gait on level surface with use of least restrictive device for at least 300 feet without report of pain nor dyspnea 8. Independent stair negotiation while holding onto bilateral rails for at least 5 steps without report of pain nor dyspnea 9. Independent with home exercise program 10. Good static and dynamic standing balance/tolerance Plan of Care/Treatment Plan: 1-2x/day, 7 days/week x 1 week. Plan of care has been reviewed with the TECHNOLOGY SERVICES MANAGER providing the service under Physical Therapy direction. Initiate Physical Therapy intervention for strengthening, bed mobility, transfers, gait, stairs, balance training, use of assistive device. DISCHARGE RECOMMENDATIONS: Patient can be discharged to home and should receive home health physical therapy services to enhance LE strength, balance, and activity tolerance. Patient will benefit from the use of a front wheeled walker in order to maximize independence with functional mobility performance while reducing fall risk at home. TREATMENT CODE/TIME: 14559 x 38 minutes beginning at 13:02 p.m.. Thank you very much for this referral. Jan Willis, [facility] With a supervision of: Meri Ramirez PT, DPT, CLT [facility]
[2019-06-22] MEDS: HYDROcodone 5/Acetaminophen 325 TAB PO (20:57)
[2019-06-22] MEDS: Citalopram 20 MG TAB PO (20:57)
[2019-06-22] MEDS: Melatonin 3 MG TAB 9 MG PO (21:57)
[2019-06-22] MEDS: Loratidine 10 MG TAB PO (21:57)
[2019-06-22] MEDS: clonazePAM 1 MG TAB 2 MG PO (21:57)
[2019-06-23] VITALS (8 sets, daily range): BP systolic 102–117; BP diastolic 54–75; PULSE 70–87; RESP 17–26; TEMP 36.3–38.5; O2SAT 93–99
[2019-06-23] MEDS: oxyCODONE-CR 10 MG TABCR PO ×3 (00:33→23:43)
[2019-06-23] MEDS: Ketorolac 30 MG/ML VIAL IVP ×5 (00:34→23:42)
[2019-06-23] MEDS: POTASSIUM CHLORIDE/0.9% NACL 1,000 ML 125 MEQ IV (00:34)
[2019-06-23] MEDS: Normal Saline Flush 10 ML SYR (06:04)
[2019-06-23] MEDS: MORPHine 10 MG/ML VIAL IVP (06:23)
[2019-06-23 07:09] LABS: HCT 34.5 % (36.0-46.0); HGB 11.7 g/dL (12.0-15.5); Mean Corp. HGB Concentration 33.9 g/dL (32.0-36.0); Mean Corpuscular Hemoglobin 32.1 pg (27.0-33.0); Mean Corpuscular Volume 94.8 fL (80-95); Platelet Count 228 x1000/uL (130-400); RBC 3.64 m/cumm (4.00-5.20); RBC Distribution Width 11.3 % (11.7-14.6); White Blood Cell Count 9.86 k/cumm (4.4-10.8)
[2019-06-23] MEDS: Metoprolol CR 50 MG TABCR PO (08:58)
[2019-06-23] MEDS: Calcium 600mg/Vit D 200U TAB 1 TAB PO (08:58)
[2019-06-23] MEDS: Magnesium Oxide 400 MG TAB PO (08:58)
[2019-06-23] MEDS: Citalopram 20 MG TAB PO ×2 (08:58→20:20)
[2019-06-23] MEDS: Multivitamin w/Minerals TAB 1 TAB PO (08:58)
[2019-06-23] MEDS: Omega-3 Fatty Acids 1000 MG CAP PO (08:59)
[2019-06-23] MEDS: Docusate Sodium 100 MG CAP PO ×3 (09:00→20:20)
[2019-06-23] MEDS: Oxybutynin 5 MG TAB PO (09:01)
[2019-06-23] MEDS: Cetirizine 10 MG TAB PO (09:01)
[2019-06-23] MEDS: Ascorbic Acid 500 MG TAB 1000 MG PO (09:01)
[2019-06-23] MEDS: Vitamin E 400 UNITS CAP PO (09:02)
[2019-06-23] MEDS: Aspirin 81 MG CHEW PO (09:02)
[2019-06-23] MEDS: HYDROcodone 5/Acetaminophen 325 TAB PO ×2 (09:03→16:08)
[2019-06-23] MEDS: Nicotine 21 MG/24 HR PATCH TD (09:08)
[2019-06-23] MEDS: Fluticasone NASAL SPRAY 16 GM BTL NS (09:11)
[2019-06-23] MEDS: Albuterol HFA 8 GM 60 PUFF INH IH (09:38)
[2019-06-23] MEDS: Enoxaparin 30 MG/0.3 ML SYR SC (10:49)
--- NOTE | 2019-06-23 12:31 | PT.INTREAT ---
Date of service: 06/23/19 Time of Service: 12:31 PT Notes Inpatient Physical Therapy Treatment Note [facility] Date: 06/23/19 PRECAUTIONS: WBAT R SUBJECTIVE: Kenyetta states that she is a little sore after slipping in the bathroom last night. She is agreeable to participating in PT. OBJECTIVE: PAIN: Patient c/o R knee pain with gait training and ther ex BED MOBILITY/TRANSFERS Supine-sit: I with HOB flat Sit-supine: I with HOB flat Sit-stand: SBA Stand-sit: SBA GAIT Assistive Device: FWW Weight bearing: WBAT R Assist: CGA-SBA Distance: 60' x2 in a.m.; 75' x2 in p.m. Deviation: Step-through instruct, slow pacing in a.m.; step through gait pattern utilized, knee buckling x2 -self recovered in p.m. THEREX: Patient completed a LE strengthening and stabilization program, in a long-sit position in a.m. and in supine position in p.m., as per flow sheet. Patient able to perform active SLR x10 without Huntley dressing or knee immobilizer in place in p.m. Patient's R knee AROM is -8-99 degrees. Patient ends with cryocuff to R knee in p.m. TOILETING: Patient toileted with SBA for transfers in both a.m. and p.m. REMOVAL OF HUNTLEY: Incision site clean, dry, and intact. R LE is free of redness, blistering, and abnormal sensitivity. Replaced with Xeroform gauze, 4 x 4 gauze, tape, thigh-high ELOY stocking. ASSESSMENT: Patient tolerated session well with some c/o increased R knee pain with ther ex and gait training. She was able to tolerate a progression in gait distance with FWW support and CGA-SBA, without knee immobilizer support. She would benefit from continued gait and transfer training for improved mobility and activity tolerance. PLAN: Continue with PT's POC TREATMENT CODE/TIME: Session 1: 40 minutes; 83992 x2, 00386 Session 2: 45 minutes; 44778 x2, 48000
--- NOTE | 2019-06-23 13:15 | PDOC.CMIN ---
- If Service Date Differs Date of service: 06/23/19 Time of Service: 13:15 Care Management Initial Assess REASON FOR HOSPITALIZATION:: R Total Knee PAST MEDICAL HISTORY/PAST SURGICAL HISTORY:: Medical History. Anxiety (Chronic). Arthropathy (Acute). Colitis (Acute). Degeneration of intervertebral disc (Acute). Depressive disorder (Acute). Fibrocystic disease of breast (Acute). Lichen sclerosus of female genitalia (Acute). Lumbosacral radiculopathy (Acute). Migraine (Chronic). Somatization disorder (Acute). Varicose veins of lower extremity (Acute). Surgical History. History of bunionectomy (Acute). History of carpal tunnel release (Acute). History of section (Chronic). History of colonoscopy (Chronic). History of hernia repair (Chronic). Hiatal hernia. Right inguinal hernia. History of surgical removal of ganglion cyst (Acute) PREVIOUS FUNCTIONAL STATUS/SOCIAL/FAMILY SUPPORTS:: Kenyetta lives alone in [place] in a one story ranch home. She has two children who both live close by. She has supportive neighbors who check in on her, but she reports that she enjoys living alone. 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 She is independent with her ADL's. CURRENT FUNCTIONAL STATUS:: Kenyetta was sitting up in her chair eating lunch during the visit with CM. She reported that she had a bad night and that her pain had been 10+, but that it is better now. She reports that she doesn't feel comfortable going home today. She reported that she has only one stair to get into her house, and that her home is one level with a raised toilet and a shower chair. She also states that her neighbor will stay with her for a couple days when she goes home. CM will follow. ADVANCE DIRECTIVES:: None on file Has patient been provided with information about the portal?: Yes Did the patient sign up for the portal?: No CODE STATUS:: Full Code INSURANCE COVERAGE / FINANCIAL ISSUES:: [facility] CURRENT HOME/COMMUNITY SERVICES/EQUIPMENT:: Kenyetta has a 4WW, a raised toilet seat and a shower chair at home currently. PRIMARY CARE PHYSICIAN:: Armani Ayoub POTENTIAL DISCHARGE NEEDS:: Kenyetta may need a FWW, depending on the recommendation from the MD and PT. Evaluations for further needs, follow up appointments. HH PT vs out patient PT, per MD. PATIENT/FAMILY EDUCATION NEEDS:: Review of community based supports, discharge plan, discussion of self care needs upon discharge including Ask Me Three ANTICIPATED BARRIERS TO DISCHARGE:: None identified at this time. TRANSPORTATION:: Kenyetta's daughter, Willa, will drive her home when ready. PLAN:: Anticipate Kenyetta will return home when medically ready, per MD. CM will coordinate DME needs. Anticipate HH PT vs outpatient PT, per recommendation of MD. Kenyetta's daughter Willa will drive her home via private vehicle upon discharge. CM will continue to follow and support discharge planning.
--- NOTE | 2019-06-23 14:42 | W.PM.PROGNOT ---
Date of Service Date of service: 06/23/19 Time of Service: 14:42 Assessment and Plan Assessment and plan (1) Status post total knee replacement, right: Status: Acute Assessment and plan: Assessment: Stable postop day #1 right total knee replacement. I think she is moving so well that we get her Huntley dressing off today and start her flexing her knee. Plan: Have PT remove her Huntley dressing and replaced with a long-leg Romario stocking. We will begin active flexion of her right knee today. Continue to mobilize per total knee protocol. Discharge home when independent, probably . Subjective Subjective Interval history since last seen: She feels like her pain is well controlled. She has had no cravings for smoking with the nicotine patch. She says she is aiming for discharge home on when she will have someone at home to help her. Exam Narrative Exam Narrative: She is afebrile. Vital signs are stable. She is voiding well. I and O's are balanced. Hemoglobin 11.7 g today. She walks 60 feet x 2 with PT. She transfers with minimal assist, mainly help lifting her right leg. She has good sensation and circulation to her right foot. Good active ankle plantar flexion and dorsiflexion. Objective Objective Clinical Data: Abnormal lab results 06/23/19 Range/Units 06:50 RBC 3.64 L (4.00-5.20) m/cumm Hgb 11.7 L (12.0-15.5) g/dL Hct 34.5 L (36.0-46.0) % RDW 11.3 L (11.7-14.6) % Vital Signs Temperature 37.6 C H 06/23/19 11:25 Temperature Source Tympanic 06/23/19 11:25 Pulse 84 06/23/19 11:25 Pulse Rhythm Regular 06/22/19 21:00 Respiratory Rate 18 06/23/19 11:25 Respiratory Effort Non-Labored 06/23/19 02:07 Respiratory Depth Normal 06/23/19 02:07 Respiratory Pattern Normal 06/23/19 02:07 Blood Pressure 103/68 06/23/19 11:25 Blood Pressure Mean 94 06/22/19 10:20 Pulse Oximetry 95 06/23/19 11:25 Respiratory End-tidal CO2 48 06/22/19 11:09 Oxygen Delivery Method Room Air 06/23/19 11:25 Oxygen Flow Rate 0 06/23/19 11:25 Fraction of Inspired Oxygen (FIO2) 39 06/22/19 10:20 Pain Level 9 06/23/19 12:41 Comment 06/22/19 20:02 Intake & Output 06/22/19 06/23/19 06/23/19 23:59 11:59 23:59 Intake Total 1584.667 / 3594.667 580 / 820 240 / 820 Output Total 1700 / 1700 1100 / 1100 Balance -115.333 / 1894.667 -520 / -280 240 / -280 Intake: IV 554.667 / 2564.667 100 / 100 Oral 1030 / 1030 480 / 720 240 / 720 Output: Urine 1700 / 1700 1100 / 1100 Other: Urine Color Yellow Pale Yellow Urine Appearance Clear Clear Urine Odor Normal None Voiding Methods Toilet Bedside Commode Laboratory Results WBC 9.86 k/cumm (4.4-10.8) 06/23/19 06:50 RBC 3.64 m/cumm (4.00-5.20) L 06/23/19 06:50 Hgb 11.7 g/dL (12.0-15.5) L 06/23/19 06:50 Hct 34.5 % (36.0-46.0) L 06/23/19 06:50 MCV 94.8 fL (80-95) 06/23/19 06:50 MCH 32.1 pg (27.0-33.0) 06/23/19 06:50 MCHC 33.9 g/dL (32.0-36.0) 06/23/19 06:50 RDW 11.3 % (11.7-14.6) L 06/23/19 06:50 Plt Count 228 x1000/uL (130-400) 06/23/19 06:50 MPV 9.0 fL (8.0-11.0) 06/23/19 06:50
--- NOTE | 2019-06-23 14:48 | CHAPLAIN ---
Kenyetta told me about her knee surgery, and said she also has back pain, hip pain and other medical issues. Her daughter is her caregiver but is gone to a job during the day. She expects her son will visit later. She seemed not to be surprised that she would have another medical issue to deal with. I will continue to visit.
[2019-06-23] MEDS: clonazePAM 1 MG TAB 2 MG PO (21:32)
[2019-06-23] MEDS: Loratidine 10 MG TAB PO (21:32)
[2019-06-23] MEDS: Melatonin 3 MG TAB 9 MG PO (21:32)
[2019-06-24] VITALS (9 sets, daily range): BP systolic 99–116; BP diastolic 52–76; PULSE 68–88; RESP 16–26; TEMP 36.4–38.5; O2SAT 92–96
[2019-06-24] MEDS: Acetaminophen 325 MG TAB 650 MG PO ×2 (00:08→21:25)
--- NOTE | 2019-06-24 01:37 | NUR.NOTE ---
Nursing Note: At 23:45 hrs. Witnessed s/p fall while moving about after bedside commode used. Right knee drsg with visible blood stain estimated around 2 inches in diameter and pen marked on the drsg done and guera are intact and bleeding stops, reinforced by 4 x 4 gauze and continue to monitor. Medicated with Tylenol for Temp of 38.5 and rechecked was 37.1, pt was shaky at that time of event. and reported of pain rated 10 on surgical site, Scheduled ketoralac and oxycodone given. Pt able to moved affected toes and leg.CMST wnl. Vital signs taken and recorded. Continue to monitor.
[2019-06-24] MEDS: HYDROcodone 5/Acetaminophen 325 TAB PO ×3 (02:12→18:04)
[2019-06-24] MEDS: Ketorolac 30 MG/ML VIAL IVP ×2 (06:29→12:18)
[2019-06-24] MEDS: Normal Saline Flush 10 ML SYR ×2 (07:11→12:18)
[2019-06-24 07:30] LABS: HCT 37.6 % (36.0-46.0); HGB 12.5 g/dL (12.0-15.5); Mean Corp. HGB Concentration 33.2 g/dL (32.0-36.0); Mean Corpuscular Hemoglobin 31.8 pg (27.0-33.0); Mean Corpuscular Volume 95.7 fL (80-95); Mean Platelet Volume 9.5 fL (8.0-11.0); Platelet Count 229 x1000/uL (130-400); RBC 3.93 m/cumm (4.00-5.20); RBC Distribution Width 11.6 % (11.7-14.6); White Blood Cell Count 9.01 k/cumm (4.4-10.8)
--- NOTE | 2019-06-24 08:34 | NUR.NOTE ---
[id number] NURSE Luci DURÁN CALLED FOR HELP FROM RM 216. PT ON FLOOR IN SITTING POSITION. VS TAKEN. PT STATED 2 TIMES THAT SHE DID NOT HIT HER HEAD.HIT OPERATIVE R KNEE AND THERE WAS SOME BLOOD ON R KNEE DRSG.OTHER NURSE'S ALSO RESPONDED TO FALL AND PT WAS BROUGHT TO A STAND AND HELPED BACK TO BED. PT STATED SHE HIT HER KNEE AND LEFT ELBOW. ALL EXTREMETIES WERE ASSESSED BY PT'S NURSE. REPEAT VS AND ASSESSMENTS DONE. MD WAS CALLED AND ADVISED THAT PT FELL AND HIT KNEE AND THAT HER TEMP WAS 38.8. ASKED IF MD WANTED AND XRAY. PT ORDERED CRYO CUFF TO BE PUT ON KNEE AND OR ICE AND TYLENOL TO BE GIVEN. MD DECLINED XRAY. TYLENOL TOOK DOWN PT'S TEMPERATURE. THIS NURSE ALSO CHECKED UP ON PT AFTER FALL TO ACERTAIN ANY ILL EFFECTS. PT DENIED PAIN. PT REMAINED STABLE T/O NIGHT AND STAIN ON DRSG HAD BEEN MARKED AND DID NOT EXCEED INK BORDERS T/O NOC.Nursing Note:
[2019-06-24] MEDS: Nicotine 21 MG/24 HR PATCH TD (08:48)
[2019-06-24] MEDS: Vitamin E 400 UNITS CAP PO (08:50)
[2019-06-24] MEDS: Magnesium Oxide 400 MG TAB PO (08:50)
[2019-06-24] MEDS: Oxybutynin 5 MG TAB PO ×2 (08:50→19:56)
[2019-06-24] MEDS: Omega-3 Fatty Acids 1000 MG CAP PO (08:50)
[2019-06-24] MEDS: Docusate Sodium 100 MG CAP PO ×2 (08:50→19:55)
[2019-06-24] MEDS: Metoprolol CR 50 MG TABCR PO (08:51)
[2019-06-24] MEDS: Calcium 600mg/Vit D 200U TAB 1 TAB PO (08:51)
[2019-06-24] MEDS: Aspirin 81 MG CHEW PO (08:51)
[2019-06-24] MEDS: Multivitamin w/Minerals TAB 1 TAB PO (08:51)
[2019-06-24] MEDS: Ascorbic Acid 500 MG TAB 1000 MG PO (08:51)
[2019-06-24] MEDS: Pantoprazole 40 MG TABCR PO (08:51)
[2019-06-24] MEDS: Cetirizine 10 MG TAB PO (08:51)
[2019-06-24] MEDS: Citalopram 20 MG TAB PO ×2 (08:51→19:56)
[2019-06-24] MEDS: Fluticasone NASAL SPRAY 16 GM BTL NS (09:05)
[2019-06-24] MEDS: Albuterol HFA 8 GM 60 PUFF INH IH (09:47)
[2019-06-24] MEDS: Enoxaparin 30 MG/0.3 ML SYR SC (11:01)
--- NOTE | 2019-06-24 11:16 | PT.INTREAT ---
Date of service: 06/24/19 Time of Service: 11:17 PT Notes Inpatient Physical Therapy Treatment Note [facility] Date: 06/24/19 PRECAUTIONS: WBAT R SUBJECTIVE: Kenyetta reports that she fell last night. She states that she was dizzy and fell while transferring to the commode. She reports some additional soreness in her groin area this morning, which she contributes to her episode last night. She is agreeable to PT, stating that walking makes her feel better. OBJECTIVE: PAIN: Patient c/o R knee pain with gait training and ther ex, as well as R groin pain BED MOBILITY/TRANSFERS Sit-stand: S Stand-sit: S GAIT Assistive Device: FWW Weight bearing: WBAT R Assist: SBA Distance: 75' + 125' in a.m.; 200' in p.m. Deviation: Step-through instruct, slow pacing THEREX: Patient completed a LE strengthening and stabilization program, in both sitting and long-sit positions, as per flow sheet. Patient able to perform active SLR x10 without Huntley dressing or knee immobilizer in place. Patient ends with cryocuff to R knee in p.m. STAIRS: Up/down 3?4 and 2?6 using B rails and a step to pattern with supervision TOILETING: Patient toileted with supervision for transfers. ASSESSMENT: Patient tolerated session well with minimal c/o R knee pain with ther ex and gait training. She was able to tolerate a progression in gait distance with FWW support and SBA, without knee immobilizer support. She would benefit from continued gait and transfer training for improved mobility and activity tolerance. PLAN: Continue with PT's POC TREATMENT CODE/TIME: Session 1: 40 minutes; [id number] x2, [id number] Session 2: 30 minutes; [id number], [id number]
[2019-06-24] MEDS: oxyCODONE-CR 10 MG TABCR PO ×2 (12:18→23:56)
--- NOTE | 2019-06-24 13:19 | PDOC.HHF2F ---
Home Health Certification Home Health Certification: 1. Encounter Date and Reason I certify that MERI HUTCHINSON was seen by Vipul West MD on 06/24/19 and that I had a gldh-lh-gune encounter with this patient that meets the physician face to face encounter requirements. 2. Clinical Findings Supporting Skilled Need and Homebound Status I certify that home health services are medically necessary, include either intermittent senior care and/or physical/speech therapy, and that this patient is homebound in that absences from the home require considerable and taxing effort and are infrequent or of short duration, or are attributable to the need to receive medical care. [X] (a) Attached documentation from encounter provides clinical findings supporting skilled need and homebound status (including what assistance patient requires to leave the home). The encounter with the patient was in whole, or in part, for the following medical condition, which is the primary reason for home health care: POST-OP: R TOTAL KNEE [facility]ci: Physical Therapy:ROM and strengthening R knee, S/P R total knee replacement. WBAT to R leg. Speech Therapy: Homebound:Meets criteria for homebound due to recent total knee replacement and lack of transportation. 3. Certification and Authentication I certify that I composed the above information based on my clinical judgement relating to this patient's medical condition and, if applicable, clinical findings communicated to me by the NPP or inpatient physician who performed the Home Health Referral. All further orders will be obtained through (Community Based Physician - PCP)
--- NOTE | 2019-06-24 13:22 | W.PM.PROGNOT ---
Date of Service Date of service: 06/24/19 Time of Service: 13:22 Assessment and Plan Assessment and plan (1) Status post total knee replacement, right: Status: Acute Assessment and plan: Assessment: Progressing well following right total knee replacement. She should be ready to go home tomorrow. The fall she had last night is causing her no problems. Plan: I filled out her home health [id number] form. I started her on Celebrex 200 g p.o. twice daily today. Would want to continue this for 30 days postop. Would also have her take hydrocodone with APAP 5/325, 1 every 6 hours as needed for breakthrough pain. Would have her take 1 baby aspirin twice a day for 30 days to prevent DVT in the legs. Would have her use a Cryo/Cuff to the right knee 4 times a day for an hour each time. She should elevate her right knee when sitting. She should use the long Romario stocking on the right side during the daytime only for the next 2 weeks. She may shower and get her guera wet. She should cover the guera with light gauze dressing so they do not catch on her stockings. She will be encouraged to walk every day as much as discomfort allows. She is to use a walker or cane as long as she has a limp. She should follow-up in my office in [address] Hurst will be discharging her tomorrow barring any complications, as I will be out of town. Subjective Subjective Interval history since last seen: She fell onto her right knee last night when she got dizzy getting off the toilet seat. She is not having any particular discomfort with her right knee today. She did get some mild amount of bleeding from the distal incision after her fall. There is been no active bleeding since. She wants to go home tomorrow. She wants home health PT. Exam Narrative Exam Narrative: Incision is clean and dry. There is some dried blood at the distal portion of the incision from her fall last night. She lacks maybe 5 degrees of extension. She can do a good active straight leg raise for me today. She is flexing to 99 degrees. She is walking all around the second floor. She needs minimal assist from sit to stand. She is afebrile her vital signs are stable. Objective Objective Clinical Data: Abnormal lab results 06/24/19 Range/Units 06:28 RBC 3.93 L (4.00-5.20) m/cumm MCV 95.7 H (80-95) fL RDW 11.6 L (11.7-14.6) % Vital Signs Temperature 36.6 C 06/24/19 11:40 Temperature Source Skin 06/24/19 11:40 Pulse 76 06/24/19 11:40 Pulse Rhythm Regular 06/24/19 03:50 Respiratory Rate 18 06/24/19 11:40 Respiratory Effort Non-Labored 06/24/19 03:50 Respiratory Depth Normal 06/24/19 03:50 Respiratory Pattern Normal 06/24/19 03:50 Blood Pressure 99/63 L 06/24/19 11:40 Blood Pressure Mean 94 06/22/19 10:20 Pulse Oximetry 95 06/24/19 11:40 Respiratory End-tidal CO2 48 06/22/19 11:09 Oxygen Delivery Method Room Air 06/24/19 11:40 Oxygen Flow Rate 0 06/24/19 11:40 Fraction of Inspired Oxygen (FIO2) 39 06/22/19 10:20 Pain Level 6 06/24/19 12:18 Comment 06/22/19 20:02 Intake & Output 06/23/19 06/24/19 06/24/19 23:59 11:59 23:59 Intake Total 1020 / 1636.667 500 / 500 Output Total 1800 / 2900 1100 / 1100 Balance -780 / -1263.333 -600 / -600 Intake: IV 300 / 436.667 20 / 20 Oral 720 / 1200 480 / 480 Output: Urine 1800 / 2900 1100 / 1100 Other: Urine Color Yellow Yellow Urine Appearance Clear Clear Urine Odor Normal Stool Size Large Stool Characteristics Soft Formed Brown Voiding Methods Bedside Commode Bedside Commode Laboratory Results WBC 9.01 k/cumm (4.4-10.8) 06/24/19 06:28 RBC 3.93 m/cumm (4.00-5.20) L 06/24/19 06:28 Hgb 12.5 g/dL (12.0-15.5) 06/24/19 06:28 Hct 37.6 % (36.0-46.0) 06/24/19 06:28 MCV 95.7 fL (80-95) H 06/24/19 06:28 MCH 31.8 pg (27.0-33.0) 06/24/19 06:28 MCHC 33.2 g/dL (32.0-36.0) 06/24/19 06:28 RDW 11.6 % (11.7-14.6) L 06/24/19 06:28 Plt Count 229 x1000/uL (130-400) 06/24/19 06:28 MPV 9.5 fL (8.0-11.0) 06/24/19 06:28
--- NOTE | 2019-06-24 14:57 | PDOC.CMPRO ---
- If Service Date Differs Date of service: 06/24/19 Time of Service: 14:57 Care Management Progress Note S/O: Kenyetta was sitting up in her chair eating lunch when CM met with her. She stated that she had a very hard night, as she got up to use the bathroom and fell. She stated that she felt dizzy when she fell, and it hurt her back and leg, but it didn't directly effect her knee. She also reported that the nurses put an alarm on her bed after that so they can be available to assist her if she needs to get up at night. She reported that she was still ready to go home tomorrow, as she has been doing well working with PT. CM discussed her DME needs with her and assured her that she will have a FWW to go home with. Kenyetta is agreeable to the plan. CM will continue to follow. A: Kenyetta is a 59 year old female admitted to [facility] on 06/22/2019 post total knee replacement. P: Anticipate Kenyetta will return home with new orders for HH PT when medically ready, possibly tomorrow. CM will coordinate FWW through [facility] for Kenyetta to use at home. CM will continue to follow and support patient with discharge planning.
--- NOTE | 2019-06-24 16:22 | CHAPLAIN ---
Kenyetta told me about falling last night, and said it was no one's fault, she just got weak and slipped down. She is looking forward to being discharged tomorrow. She also talked about how much she likes her orthopedist. She said she's feeling ready to go home because she's lined up her daughter and a friend to help take care of her. She shared some personal history and told me about her parents and her children and the farm she [place] them [place].
--- NOTE | 2019-06-24 16:49 | PHARADMIT ---
Admission Pharmacy Clinical Review post-op R total knee Code Status Full Code Current Weight 73.1 kg Renally Cleared and Narrow Therapeutic Index Meds no labs QTc Value / Action Taken n/a BP Control, Fever BP 115/67 Tmax 38.5 Electrolytes reviewed no labs DVT Prophylaxis enoxaparin Opiate Usage / Scheduled Bowel Regimen Ordered jane and prn/jane docusate Plt/SCr for Heparin / Enoxaparin plt 229 SCr-no labs INR for Warfarin n/a H/H stable, WBC/Bands h/h 12.5/37.6 wbc 9.01 Antibiotic appropriateness none Cultures and Sensitivities n/a Surgical ABX d/c within 24 hr yes DM control / Insulin Dosing no labs none Heart Failure (Check EF%) (GERMÁN's, B-Block, Diuretics) none IV to PO Switch n/a Home Meds Reviewed -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
[2019-06-24] MEDS: Celecoxib 200 MG CAP PO (19:56)
[2019-06-24] MEDS: Melatonin 3 MG TAB 9 MG PO (21:20)
[2019-06-24] MEDS: Loratidine 10 MG TAB PO (21:20)
[2019-06-24] MEDS: clonazePAM 1 MG TAB 2 MG PO (21:21)
[2019-06-25 00:08] VITALS: BP 112/73; PULSE 76; RESP 18; TEMP 36.4; O2SAT 91
[2019-06-25 05:30] VITALS: BP 114/78; PULSE 79; RESP 16; TEMP 36.5; O2SAT 92
[2019-06-25] MEDS: HYDROcodone 5/Acetaminophen 325 TAB PO ×2 (05:43→11:26)
--- NOTE | 2019-06-25 06:38 | DSE_ITS ---
Date of service: 06/25/19 Time of Service: 08:38 DS: Diagnosis Discharge Diagnosis (1) Status post total knee replacement, right: Status: Acute Discharge Plan Disposition Patient Disposition: HOME W/HOME HEALTH SERVICE Condition: Good Discharge Details Reason For Visit: POST-OP: R TOTAL KNEE Admit Date/Time: 06/22/19 06:01 Admit Provider: Vipul West Attending Provider: Vipul West [facility] Course: Patient was admitted to the medical/surgical floor following the procedure. It was tolerated well without any notable medical, surgical, or anesthetic complications. Mobilization began postoperatively. The tran catheter was removed and voiding spontaneously. Vitals were stable. Physical therapy worked with the patient and was cleared for discharge home with home health services. No acute medical issues. Home Meds and New Rx's Prescriptions: New celecoxib 200 mg capsule 200 mg PO BID PRN (Reason: pain) Qty: 60 RF: 1 hydrocodone-acetaminophen 5-325 mg tablet 1 tab PO Q6H PRN PRN (Reason: pain) Qty: 16 RF: 0 acetaminophen 500 mg tablet 500 mg PO Q8H PRN (Reason: pain) Qty: 90 RF: 3 Continued metoprolol succinate 50 MG tablet extended release 24 hr 50 mg PO DAILY RF: 0 clonazepam 1 MG tablet 2 mg PO HS RF: 0 ascorbic acid (vitamin C) [Vitamin C] 500 MG tablet 1,000 mg PO DAILY RF: 0 meclizine 25 MG tablet,chewable 25 mg PO PRN RF: 0 Veramyst 10 GM spray,suspension 50 mcg NS BID RF: 0 calcium-vitamin D3-vitamin K 1 EACH tablet,chewable 1 ea PO DAILY RF: 0 MELATONIN 5 MG 10 mg PO HS RF: 0 VITAMIN E 400 iu PO DAILY RF: 0 tizanidine 2 MG tablet 2 mg PO BID RF: 0 budesonide 3 MG capsule,delayed,extend.release 3 mg PO DAILY RF: 0 hydroxyzine HCl 25 MG tablet 1 - 2 tab PO once prn Qty: 60 RF: 0 cetirizine 10 MG tablet,chewable 10 mg PO DAILY RF: 0 magnesium 200 MG tablet 400 mg PO DAILY RF: 0 omega 6-tuu-rii-fish oil 1 EACH capsule 1 ea PO DAILY RF: 0 Chantix 0.5 MG tablet 0.5 mg PO PRN PRNRF: 0 halobetasol propionate 0.05 % Cream 1 applic TOPICAL DAILY RF: 0 oxybutynin chloride 5 mg Tablet 5 mg PO DAILY RF: 0 fluticasone propionate 50 mcg/actuation [place],Suspension 2 spray INTRANASAL DAILY RF: 0 loratadine 10 mg Tablet 10 mg PO HS RF: 0 Narcan 4 mg/actuation [place],Non-Aerosol 1 spray INTRANASAL ONCE PRNRF: 0 hydrocortisone acetate 25 mg Suppository 25 mg TN DAILY RF: 0 sumatriptan succinate 100 mg Tablet 100 mg PO ONCE PRNRF: 0 nitroglycerin [Nitrostat] 0.4 mg Tablet, Sublingual 0.4 mg SUBLINGUAL Q5-15M PRNRF: 0 albuterol sulfate [Ventolin HFA] 200 PUFF HFA aerosol inhaler 2 puff Inhalation DAILY RF: 0 citalopram 20 mg Tablet 20 mg PO BID RF: 0 Changed aspirin 81 mg tablet,chewable 81 mg PO BID Qty: 60 RF: 0 Discontinued meloxicam 15 mg Tablet 15 mg PO DAILY RF: 0 ibuprofen 600 MG tablet 600 mg PO TID Qty: 30 RF: 0 hydrocodone-acetaminophen 1 EACH tablet 1 tab PO Q6H PRN PRNQty: 20 RF: 0 Discharge Instructions Additional Instructions: Total Knee Discharge Instructions Activity: The most important activity is to walk. You should try to take short walks a few times a day. It is important that when resting you work on keeping the knee straight. Avoid putting a pillow behind the knee as this will encourage flexion. Work on range of motion exercises as provided by Physical Therapy. - You will have home health physical therapy. - You should wear the ELOY hose on both legs for 2 weeks. Dressing: Keep the wound covered with a light gauze dressing. The wound may get wet in the shower but then dry and cover. Medications: - You should take Tylenol and anti-inflammatory Celebrex as your primary pain control medications - You have been prescribed a stronger pain medication Hydrocodone for breakthrough pain, take as needed as prescribed. - You will be taking Aspirin 81mg twice a day for DVT prevention unless instructed otherwise. - If you have constipation you should take Colace or Miralax (both [id number]). It takes most people 3-4 days to have a bowel movement. Follow-up: 2 weeks Referrals: Vipul West MD [ [facility] STAFF PHYSICIAN] - (2 weeks) Activity:: Activity as Tolerated Equipment/Supplies:: Walker Diet:: As Tolerated Discharge Orders Discharge Orders: Discharge Order (Routine); Ordered 06/25/19 Ordered By: Reza Hurst DS: Summary Status at Discharge Functional status at discharge: uses cane/walker Overall status at discharge: patient is progressing back to baseline Mental Status: mental status grossly normal Speech and Movement: speech and movement normal Mood: congruent mood Affect: normal affect Exam Psych Mental Status: mental status grossly normal Speech and Movement: speech and movement normal Mood: congruent mood Affect: normal affect DS: Data Vitals/I&O Vitals and I&O: Vital Signs Temperature 36.5 C 06/25/19 05:30 Temperature Source Temporal Artery Scan 06/25/19 05:30 Pulse 79 06/25/19 05:30 Pulse Rhythm Regular 06/24/19 18:40 Respiratory Rate 16 06/25/19 05:30 Respiratory Effort Non-Labored 06/24/19 18:40 Respiratory Depth Normal 06/24/19 18:40 Respiratory Pattern Normal 06/24/19 18:40 Blood Pressure 114/78 06/25/19 05:30 Blood Pressure Mean 94 06/22/19 10:20 Pulse Oximetry 92 L 06/25/19 05:30 Respiratory End-tidal CO2 48 06/22/19 11:09 Oxygen Delivery Method Room Air 06/25/19 05:30 Oxygen Flow Rate 0 06/25/19 05:30 Fraction of Inspired Oxygen (FIO2) 39 06/22/19 10:20 Pain Level 6 06/25/19 05:43 Comment 06/22/19 20:02 Intake & Output 06/24/19 06/24/19 06/25/19 11:59 23:59 11:59 Intake Total 980 / 1240 260 / 1240 Output Total 1100 / 1500 400 / 1500 400 / 400 Balance -120 / -260 -140 / -260 -400 / -400 Intake: IV 20 / 40 Oral 960 / 1200 240 / 1200 Output: Urine 1100 / 1500 400 / 1500 400 / 400 Other: Urine Color Yellow Yellow Yellow Urine Appearance Clear Clear Clear Urine Odor Normal Normal Normal Stool Size Large Stool Characteristics Soft Formed Brown Voiding Methods Bedside Commode Bedside Commode Bedside Commode Data Completed and Pending Labs on day of discharge: Labs from last 24 hours 06/24/19 06:28 WBC 9.01 RBC 3.93 L Hgb 12.5 Hct 37.6 MCV 95.7 H MCH 31.8 MCHC 33.2 RDW 11.6 L Plt Count 229 MPV 9.5 PFSH Medical History Anxiety (Chronic) Arthropathy (Acute) Colitis (Acute) Degeneration of intervertebral disc (Acute) Depressive disorder (Acute) Fibrocystic disease of breast (Acute) Lichen sclerosus of female genitalia (Acute) Lumbosacral radiculopathy (Acute) Migraine (Chronic) Somatization disorder (Acute) Varicose veins of lower extremity (Acute) Surgical History History of bunionectomy (Acute) History of carpal tunnel release (Acute) History of section (Chronic) History of colonoscopy (Chronic) History of esophagogastroduodenoscopy (EGD) (Chronic) History of hernia repair (Chronic) Hiatal hernia Right inguinal hernia History of surgical removal of ganglion cyst (Acute) Family History Father Diabetes Heart disease Myocardial infarction Brother Heart disease DUNCAN Status post heart valve repair Mother Cancer Unknown Diabetes Borderline Social History Smoking/Tobacco Use Status: Current-Occasional Tobacco Type: cigarettes Years smoked: 35 Alcohol Intake: never Drug use: Never Substance use type: does not use current occupation: disabled Current gender identity: female
[2019-06-25 07:40] VITALS: BP 104/55; PULSE 70; RESP 16; TEMP 36.5; O2SAT 92
[2019-06-25] MEDS: Cetirizine 10 MG TAB PO (08:21)
[2019-06-25] MEDS: Omega-3 Fatty Acids 1000 MG CAP PO (08:21)
[2019-06-25] MEDS: Celecoxib 200 MG CAP PO (08:21)
[2019-06-25] MEDS: Nicotine 21 MG/24 HR PATCH TD (08:21)
[2019-06-25] MEDS: Vitamin E 400 UNITS CAP PO (08:21)
[2019-06-25] MEDS: Fluticasone NASAL SPRAY 16 GM BTL NS (08:21)
[2019-06-25] MEDS: Calcium 600mg/Vit D 200U TAB 1 TAB PO (08:22)
[2019-06-25] MEDS: Ascorbic Acid 500 MG TAB 1000 MG PO (08:22)
[2019-06-25] MEDS: Metoprolol CR 50 MG TABCR PO (08:22)
[2019-06-25] MEDS: Docusate Sodium 100 MG CAP PO (08:22)
[2019-06-25] MEDS: Aspirin 81 MG CHEW PO (08:22)
[2019-06-25] MEDS: Magnesium Oxide 400 MG TAB PO (08:22)
[2019-06-25] MEDS: Multivitamin w/Minerals TAB 1 TAB PO (08:22)
[2019-06-25] MEDS: Oxybutynin 5 MG TAB PO (08:22)
[2019-06-25] MEDS: Citalopram 20 MG TAB PO (08:22)
[2019-06-25] MEDS: Pantoprazole 40 MG TABCR PO (08:22)
[2019-06-25] MEDS: Albuterol HFA 8 GM 60 PUFF INH IH (09:47)
[2019-06-25] MEDS: Enoxaparin 30 MG/0.3 ML SYR SC (10:49)
--- NOTE | 2019-06-25 11:54 | PT.INTREAT ---
Date of service: 06/25/19 Time of Service: 11:54 PT Notes Inpatient Physical Therapy Treatment Note [facility] Date: 06/25/19 PRECAUTIONS: WBAT R SUBJECTIVE: Kenyetta reports that she feels that she is ready to return to home later today. She is agreeable to participating in PT. OBJECTIVE: PAIN: Patient c/o R knee stiffness with ther ex BED MOBILITY/TRANSFERS Sit-stand: S Stand-sit: S GAIT Assistive Device: FWW Weight bearing: WBAT R Assist: S Distance: 150' Deviation: Step-through pattern utilized, slow pacing THEREX: Patient completed a LE strengthening and stabilization program, in a long-sitting position, as per flow sheet. Patient able to perform active SLR x10. Patient ends with cryocuff to R knee. STAIRS: Up/down 3?4 and 2?6 using B rails and a step to pattern with supervision ASSESSMENT: Patient tolerated session well with minimal c/o R knee pain with ther ex and gait training. She would benefit from continued gait and transfer training for improved mobility and activity tolerance. PLAN: As per primary PT TREATMENT CODE/TIME: 40 minutes; [id number] x2, [id number]
--- NOTE | 2019-06-25 13:52 | PT.INDS ---
Date of service: 06/25/19 Time of Service: 13:52 PT Notes Inpatient Physical Therapy Discharge Summary Dates: 06/25/2019 Dates of Service: 06/05/2019 through 06/25/2019 This is a clinical summary of care provided on the duration of dates listed above. No charge was made in the completion of this documentation. Referring Doctor: Vipul West MD PT Orders: PT CONSULT: S/P Ortho Surgery Precautions: Fall. Standard. WBAT R LE. Patient Profile/Admitting Diagnosis: Patient is a 59 year old female s/p R TKA due to primary unilateral osteoarthritis of right knee. PMHX: Medical History (Updated 06/17/19 @ 13:55 by Dea Recinos) Anxiety (Chronic) Arthropathy (Acute) Colitis (Acute) Degeneration of intervertebral disc (Acute) Depressive disorder (Acute) Fibrocystic disease of breast (Acute) Lichen sclerosus of female genitalia (Acute) Lumbosacral radiculopathy (Acute) Migraine (Chronic) Somatization disorder (Acute) Varicose veins of lower extremity (Acute) Surgical History (Updated 06/17/19 @ 13:21 by Dea Recions) History of bunionectomy (Acute) History of carpal tunnel release (Acute) History of section (Chronic) History of colonoscopy (Chronic) History of hernia repair (Chronic) Hiatal hernia Right inguinal hernia History of surgical removal of ganglion cyst (Acute) Social History/Home Situation: Patient lives alone in a one story home with two steps to enter and rails on both sides. Daughter lives close by and is able to provide needed help. Patient is independent with all aspects of ADLs without the need for an assitive ambulatory device nor adaptive equipment. Equipment Owned/DME: None Subjective: NT Objective: General Observation: NT Mental Status: NT Pain: NT ROM: Right Lower Extremity: Hip flexion decreased. Hip abduction WFL. Knee flexion NT due Huntley dressing and knee immobilizer. Ankle dorsiflexion WFL. Ankle plantarflexion WFL. Left Lower Extremity: Hip flexion WFL. Hip abduction WFL. Knee flexion WFL. Ankle dorsiflexion WFL. Ankle plantarflexion WFL. Strength: Right Lower Extremity: Hip flexors 3-/5. Hip abductors 5/5. NT. Knee extensors Knee flexion NT due Huntley dressing and knee immobilizer. Ankle dorsiflexors 3/5. Ankle plantarflexors 3/5. Left Lower Extremity:Hip flexors 3/5. Hip abductors 5/5. Knee flexors 4/5. Knee extensors 5/5. Ankle dorsiflexors 5/5. Ankle plantarflexors 5/5. Bed Mobility/Transfers: Rolling I Supine to sit I Sit to supine I Sit to stand supervision Stand to sit supervision Bed to chair supervision Chair to bed supervision Gait: Patient ambulated 150 feet with supervision with WBAT on right LE. She is also able to negotiate three 4 inch steps and two 6 inch steps while holding onto bilateral rails with step to gait pattern requiring only supervision assist and minimal verbal cues for overall safety. Balance: Static Sitting: Normal Dynamic Sitting: Normal Static Standing: Fair Dynamic Standing: Fair Assessment: Patient is a 59 year old female s/p R TKA POD 0. She lives alone in a one story home but has a daughter that lives nearby. Ms. Hernandez states that she has ?the best neighbors? to help and support her during her recovery. Her prognosis is good. She presents with decreased step length, impaired balance, and decreased gait speed. She also has decreased strength in both lower extremities, and decreased ROM on the R due to post-surgical wraps. Patient continues to present with clinical signs and symptoms consistent with current/admitting diagnoses that have resulted to mobility limitations, gait instability, generalized weakness, and impairment of motor control as demonstrated by the following impairment level findings: 1. Decreased strength to R LE major muscle groups 2. Impaired sitting/standing balance 3. Impaired activity tolerance 4. Limitation of joint range of motion in R knee flexion/extension. Impairments are contributing to the following functional limitations: 1. Dependent bed mobility skills 2. Increased dependence with transfers 3. Inability to safely ambulate without assistive device and physical assistance 4. Increase completion time for mobility ADL performance 5. Increased fall risk 6. Inability to negotiate steps alone safely Goals: Goals X1 week 1. R Knee extension 0 degrees. NOT MET 2. R knee flexion 100 degrees. NOT MET 3. Sit-Stand independent NOT MET 4. Stand-Sit independent NOT MET 5. Bed-Chair independent NOT MET 6. Chair-Bed independent NOT MET 7. Independent gait on level surface with use of least restrictive device for at least 300 feet without report of pain nor dyspnea NOT MET 8. Independent stair negotiation while holding onto bilateral rails for at least 5 steps without report of pain nor dyspnea NOT MET 9. Independent with home exercise program NOT MET 10. Good static and dynamic standing balance/tolerance NOT MET DISCHARGE RECOMMENDATIONS: Patient may be discharged to home and should receive home health physical therapy services to enhance LE strength, balance, and activity tolerance. Patient will benefit from the use of a front wheeled walker in order to maximize independence with functional mobility performance while reducing fall risk at home. TREATMENT CODE/TIME: DC Thank you very much for this referral. Meri Ramirez PT, DPT, CLT [facility]
--- NOTE | 2019-06-25 14:29 | CMDISCH_ITS ---
- If Service Date Differs Date of service: 06/25/19 Time of Service: 14:32 LACE Index Scoring Tool - Questions: Length of Stay (in days): 4 - 6 Acuity (Admit via E.D.?): No E.D. Visits: 0 - Answers: Total Score: 4 Risk of Readmission: Low Risk Care Management Discharge Reason for Hospitalization: R Total Knee Discharge Plan: Kenyetta will return home with new orders for HH PT, per MD. CM coordinated FWW through [facility] for Kenyetta to use at home. Follow up appointment with Dr. West. Kenyetta is happy to be going home. Her daughter, Willa is driving her home via private vehicle. Kenyetta called CM after discharge asking for help with a prescription, as one was denied by [facility]. CM contacted Dr. Hurst, who discharged Kenyetta. Dr. Hurst reports he will write an alternative prescription. CM updated Kenyetta. Patient/Family Education Needs: Review discharge instructions, discussion of self care needs including Ask Me Three
== END 2019-06-25 11:47 | disposition home health service (06) | DRG 470 ==
LOC: PDS 06:02 → MS 13:05
PROVIDERS: Admitting Provider Orthopaedic Surgery; PCP Family Medicine; Visit Provider Orthopaedic Surgery
PROC: 0SRC0J9 Replacement of Right Knee Joint with Synthetic Substitute, Cemented, Open Approach (ICD-10-PCS; CPT 27447; principal; 2019-06-22 07:30)
DX: M17.11 Unilateral primary osteoarthritis, right knee (principal); M25.561 Pain in right knee; Z96.651 Presence of right artificial knee joint; G89.18 Other acute postprocedural pain; F17.210 Nicotine dependence, cigarettes, uncomplicated; R42 Dizziness and giddiness; W19.XXXA Unspecified fall, initial encounter; Y92.231 Patient bathroom in hospital as the place of occurrence of the external cause
CPT/HCPCS: 27447; 36415; 76942; 85027; 94640; 97110; 97162; 97530; NC; 73560; J0131; J0690; J1100; J1650; J1885; J2250; J2270; J2405; J3010; L1830

== ENCOUNTER → 2019-07-08 10:01 | Outpatient (BNVA) | payer MEDICARE, MEDICAID, SELFPAY | PROVIDERS: PCP Family Medicine; Referring Provider Family Medicine; Visit Provider Orthopaedic Surgery | DX: Z47.1 Aftercare following joint replacement surgery (principal); Z96.651 Presence of right artificial knee joint ==

== ENCOUNTER → 2019-08-19 10:02 | Outpatient (BNVA) | payer MEDICARE, MEDICAID, SELFPAY | PROVIDERS: PCP Family Medicine; Referring Provider Family Medicine; Visit Provider Orthopaedic Surgery | DX: Z47.1 Aftercare following joint replacement surgery (principal); Z96.651 Presence of right artificial knee joint ==

== ENCOUNTER → 2019-08-19 10:46 | Outpatient (BNVA) | payer MEDICARE, MEDICAID, SELFPAY | PROVIDERS: PCP Family Medicine; Referring Provider Family Medicine; Visit Provider Nurse Practitioner Adult Health | DX: G43.109 Migraine with aura, not intractable, without status migrainosus (principal); G43.009 Migraine without aura, not intractable, without status migrainosus | CPT/HCPCS: 99213 ==

== ENCOUNTER → 2019-10-28 10:59 | Outpatient (BNVA) | payer MEDICARE, MEDICAID, SELFPAY | PROVIDERS: PCP Family Medicine; Referring Provider Family Medicine; Visit Provider Orthopaedic Surgery | DX: M67.432 Ganglion, left wrist (principal) | CPT/HCPCS: 99213; 99214 ==

== ENCOUNTER 2019-11-23 11:30 | Day surgery (SDC) | payer MEDICARE, MEDICAID, SELFPAY ==
[2019-11-23 11:35] VITALS: BP 122/77; PULSE 72; RESP 18; TEMP 36.5; O2SAT 92
[2019-11-23] MEDS: Lactated Ringers 1,000 ML 80 ML IV (12:09)
[2019-11-23] MEDS: ceFAZolin 1 GM/50 ML BAG IVPB (14:53)
--- NOTE | 2019-11-23 15:32 | W.PM.DSUDISC ---
Discharge Plan Disposition Patient Disposition: HOME Condition: Good Discharge Details Reason For Visit: Excision of volar wrist ganglion cyst Attending Provider: Vipul West Primary Care Provider: Armani Ayoub Wisner Meds and New Rx's Prescriptions: New hydrocodone-acetaminophen 5-325 mg tablet 1 tab PO Q6H PRN (Reason: pain) Qty: 7 RF: 0 Continued metoprolol succinate 50 MG tablet extended release 24 hr 50 mg PO DAILY RF: 0 clonazepam 1 MG tablet 2 mg PO HS RF: 0 ascorbic acid (vitamin C) [Vitamin C] 500 MG tablet 1,000 mg PO DAILY RF: 0 calcium-vitamin D3-vitamin K 1 EACH tablet,chewable 1 ea PO DAILY RF: 0 VITAMIN E 400 iu PO DAILY RF: 0 tizanidine 2 MG tablet 2 mg PO BID RF: 0 budesonide 3 MG capsule,delayed,extend.release 3 mg PO DAILY RF: 0 hydroxyzine HCl 25 MG tablet 1 - 2 tab PO once prn Qty: 60 RF: 0 cetirizine 10 MG tablet,chewable 10 mg PO DAILY RF: 0 acetaminophen 500 mg tablet 500 mg PO Q8H PRN (Reason: pain) Qty: 90 RF: 3 magnesium 200 MG tablet 400 mg PO DAILY RF: 0 omega 7-muj-guf-fish oil 1 EACH capsule 1 ea PO DAILY RF: 0 Chantix 0.5 MG tablet 0.5 mg PO PRN PRNRF: 0 fluticasone propionate 50 mcg/actuation [place],Suspension 2 spray INTRANASAL DAILY RF: 0 loratadine 10 mg Tablet 10 mg PO HS RF: 0 Narcan 4 mg/actuation [place],Non-Aerosol 1 spray INTRANASAL ONCE PRNRF: 0 sumatriptan succinate 100 mg Tablet 100 mg PO ONCE PRNRF: 0 nitroglycerin [Nitrostat] 0.4 mg Tablet, Sublingual 0.4 mg SUBLINGUAL Q5-15M PRNRF: 0 oxybutynin chloride 5 mg tablet 5 mg PO BID RF: 0 albuterol sulfate [Ventolin HFA] 200 PUFF HFA aerosol inhaler 2 puff Inhalation DAILY RF: 0 hydrocodone-acetaminophen 5-325 mg tablet 1 tab PO Q6H PRN PRN (Reason: pain) Qty: 16 RF: 0 aspirin 81 mg tablet,chewable 81 mg PO BID Qty: 60 RF: 0 citalopram 20 mg tablet 20 mg PO BID RF: 0 Discharge Instructions Additional Instructions: Elevate L hand above heart level as much as possible overnite tonite. Wiggle fingers L hand 10 times/hour when awake to prevent swelling. Keep dressings and splint dry and in place until return. Return to 's office in 2 weeks. Take tylenol or ibuprofen for mild pain. Take hydrocodone for breakthru pain, if needed. Referrals: Vipul West MD [ [facility]ICIAN] - (f/u in 2 weeks.) Equipment/Supplies: Splint Activity:: Activity as Tolerated Remove Dressings/Wound Care:: Do Not Remove Shower/Bathe:: Cover Diet:: As Tolerated Discharge Orders Discharge Orders: Discharge Order (Routine); Ordered 11/23/19 Ordered By: Vipul West
[2019-11-23 16:00] VITALS: BP 134/53; PULSE 74; RESP 16; TEMP 36.1; O2SAT 94
--- NOTE | 2019-11-25 05:50 | ROE_ITS ---
REPORT OF OPERATIVE PROCEDURE DATE OF SURGERY November 23, 2019 PREOPERATIVE DIAGNOSIS Recurrent volar wrist ganglion cyst, left wrist. POSTOPERATIVE DIAGNOSIS Volar wrist ganglion cyst, left wrist. PROCEDURE Excision of recurrent volar wrist ganglion cyst, left wrist. ANESTHESIA IV regional. SURGEON Vipul West M.D. INDICATIONS This is a 59-year-old white female who had a volar wrist ganglion cyst excised several years ago. She initially did well, but noticed a recurrence. As the cyst has enlarged, it has caused her more pain. The cyst to me appears to be arising from the sheath of the flexor carpi radialis tendon and it appe ars to be bilobular on either side of a surgical skin scar. Excision of the recurrent wrist ganglion cyst was advised to alleviate her pain. It was explained to the patient that if the cyst was arising from the tendon sheath of the flexor carpi radialis, then I would incise the sheath to prevent recurr ence. The chances of recurrence would be lower if the ganglion cyst was arising from the tendon sheat h rather than from the wrist joint. The patient understood these facts and wished to have me proceed as soon as possible. PROCEDURE The patient was taken to the Operating Room on 11/23/2019. She was placed supine on the operating table . An IV regional anesthetic was administered to the left upper extremity. Once good anesthesia was obtained, the left hand, wrist and forearm were prepped and draped free in the usual sterile fashion . I made an incision in line with the previous scar from the volar wrist ganglion cyst. It appeared to bisect the cyst, which was prominent on either side of the scar. I extended the incision across th e wrist creases in a zig-zag fashion distally and extended proximally a couple of centimeters. The in cision was carried through the subcu. Sharp dissection was then used to free the ganglion cyst from t he overlying skin. I dissected circumferentially around the ganglion cyst. The ganglion cyst did in f act arise from the sheath of the flexor carpi radialis tendon. The sheath of the flexor carpi radiali s tendon was very thickened as well. Not only did I excise the ganglion cyst capsule, but then I inci sed the sheath of the flexor carpi radialis and actually excised most of the sheath. The flexor carpi radialis tendon itself was undamaged and was left alone. Subcutaneous veins were cauterized. The wound margins were infiltrated with 0.5% Marcaine with epinep hrine solution. The skin edges were approximated with interrupted #4-0 Nylon sutures. Sterile dress ings were applied of Xeroform gauze, sterile gauze, 4 x 4s, an ABD Pad and wrapped with a Kerlix band age followed by a 3-inch Felipe bandage. She was placed in a commercial cockup wrist splint. The patient 's IV regional anesthesia was reversed without complications. She was discharged to Recovery Room in good condition. The patient was discharged home from the Day Surgery Unit when fully recovered from her IV regional a nesthesia. She was given instructions to try to elevate her left wrist above heart levels as much as possible the next 48 hours. She was encouraged to wiggle her fingers 10 times an hour while awake t o prevent stiffness and swelling. She was instructed to keep the splint and dressings dry and intact until she follows up in my office in two weeks. She may use her left hand as much as discomfort all ows. She was given a prescription for breakthrough pain of hydrocodone with APAP 5/325 1 tablet every 6 hours if needed. For mild pain, she can take [id number] Tylenol or ibuprofen.
== END 2019-11-23 16:30 | disposition home or self-care (01) ==
LOC: SUR 11-24 06:25
PROVIDERS: PCP Family Medicine; Visit Provider Orthopaedic Surgery
PROC: (CPT 25112; principal; 2019-11-23 13:15)
DX: M67.432 Ganglion, left wrist (principal)
CPT/HCPCS: 25112; J0690; J2704; L3908

== ENCOUNTER → 2019-12-09 11:21 | Outpatient (BNVA) | payer MEDICARE, MEDICAID, SELFPAY | PROVIDERS: PCP Family Medicine; Referring Provider Family Medicine; Visit Provider Orthopaedic Surgery | DX: Z47.89 Encounter for other orthopedic aftercare (principal); M67.432 Ganglion, left wrist ==

== ENCOUNTER 2020-02-25 09:49 | Outpatient (CLI) | payer MEDICARE, MEDICAID, SELFPAY ==
--- NOTE | 2020-02-25 06:00 | DI.RAD_ITS ---
EXAM: XR PAIN CLINIC SACRIOILIAC 2V CLINICAL HISTORY: Dx: Sacroiliac Joint dysfunction-right TECHNIQUE: 2D and realtime digital imaging was performed. Fluoroscopy was provided in the OR COMPARISON: No exams were available for comparison FINDINGS: C-arm fluoroscopy was utilized by Dr. Stvee during reported right SI joint injection. Hard copy shows injection in the right SI joint. Fluoro time 16.6 seconds. IMPRESSION: RADIATION DOSE DELIVERED: Total DLP
[2020-02-25 10:01] VITALS: BP 111/58; PULSE 66; RESP 17; TEMP 37; O2SAT 93
[2020-02-25 10:26] VITALS: BP 133/75; PULSE 71; RESP 16; O2SAT 95
--- NOTE | 2020-02-25 10:28 | PDOC.PAIN_ITS ---
Pain Clinic Procedure Note Procedure Note Procedure Note: INTRA-ARTICULAR SI JOINT INJECTION MERI HUTCHINSON has been referred to the [facility] Management Center for intra-articular SI joint injection. COMMENTS: She has had this procedure several times in the past with excellent success for 10-12 months at a time. Her last one was 03/04/[address] Garrison. DX: Right sacroiliac joint dysfunction Patient was interviewed and the medical record reviewed. There were no medical, pharmacologic, radiographic or other structural contraindications to attempting fluoroscopically guided intra-articular SI joint injection. Risks and expected side effects as well as potential benefit of the procedure were reviewed and voiced concerns addressed. The printed consent form was signed and witnessed. Standard time-out procedure was performed. Patient was placed in the prone position on the fluoroscopy table and automated blood pressure cuff and pulse oximeter applied. The skin entry point for approaching [right/left/bilateral] SI joints was identified under the most advantageous fluoroscopic view and marked. Following thorough Chlorhexadine preparation of the skin and draping and 1% lidocaine infiltration of the skin entry point and subcutaneous tissues, a 22 gauge spinal needle was placed under fluoroscopic guidance into right SI joint was identified under the most advantageous fluoroscopic view and marked. Following thorough Chlorhexadine preparation of the skin and draping and 1% lidocaine infiltration of the skin entry point and subcutaneous tissues, a 22 gauge spinal needle was placed under fluoroscopic guidance into right SI joint. Intra-articular placement was confirmed by a clear arthrogram resulting from the injection of 0.25ml Omnipaque 240, 1ml 1% lidocaine, and 40mg Depomedrol were injected intra-articularily wit h an initial reproduction of a significant component of the usual pain. Vital signs were stable throughout the procedure and were as recorded in the docflowsheet by the nursing staff. If given, dosages of intravenous drugs for anxiolysis and analgesia were documented in MAR. Follow up plans and appointments were discussed with the patient. Post procedure instruction was given as documented in nursing documentation and having met discharge criteria, and was discharged from the Pain Management Center. COMMENTS: She tolerated the procedure well. CC: Armani Ayoub
[2020-02-25] MEDS: Omnipaque 240 MG/ML 50 ML BTL IJ (10:31)
[2020-02-25] MEDS: methylPREDNISolone ACETATE 40 MG/ML VIAL IJ (10:31)
== END 2020-02-25 10:09 ==
PROVIDERS: PCP Family Medicine; Visit Provider Preventive Medicine Occupational Medicine
DX: M53.3 Sacrococcygeal disorders, not elsewhere classified (principal)
CPT/HCPCS: 27096; 72200; J1030; Q9967

== ENCOUNTER → 2020-05-11 09:48 | Outpatient (BNVA) | payer MEDICARE, MEDICAID, SELFPAY | PROVIDERS: PCP Family Medicine; Referring Provider Family Medicine; Visit Provider Orthopaedic Surgery | DX: M67.432 Ganglion, left wrist (principal); Z98.890 Other specified postprocedural states | CPT/HCPCS: 99213 ==

== ENCOUNTER 2020-05-13 08:36 | Outpatient (CLI) | payer MEDICARE, MEDICAID, SELFPAY ==
[2020-05-14 14:41] LABS: COVID-19 RT-PCR Result NEGATIVE (Negative)
== END 2020-05-13 08:56 ==
PROVIDERS: PCP Family Medicine; Visit Provider Orthopaedic Surgery
DX: Z11.59 Encounter for screening for other viral diseases (principal); Z01.818 Encounter for other preprocedural examination
CPT/HCPCS: U0003

== ENCOUNTER 2020-05-16 12:02 | Day surgery (SDC) | payer MEDICARE, MEDICAID, SELFPAY ==
[2020-05-16 12:13] VITALS: BP 123/79; PULSE 60; RESP 16; TEMP 36.5; O2SAT 95
[2020-05-16] MEDS: Lactated Ringers 1,000 ML 80 ML IV (13:20)
[2020-05-16] MEDS: ceFAZolin 1 GM/50 ML BAG IVPB (14:47)
--- NOTE | 2020-05-16 15:32 | W.PM.DSUDISC ---
Discharge Plan Disposition Patient Disposition: HOME Condition: Good Discharge Details Reason For Visit: EXCISION OF L VOLAR WRIST GANGLION CYST Attending Provider: Vipul West Primary Care Provider: Armani Ayoub Mckittrick Meds and New Rx's Prescriptions: New ibuprofen 600 mg tablet 600 mg PO Q6H PRN (Reason: pain) Qty: 14 RF: 0 No Action metoprolol succinate 50 MG tablet extended release 24 hr 50 mg PO DAILY RF: 0 clonazepam 1 MG tablet 2 mg PO HS RF: 0 ascorbic acid (vitamin C) [Vitamin C] 500 MG tablet 1,000 mg PO DAILY RF: 0 calcium-vitamin D3-vitamin K 1 EACH tablet,chewable 1 ea PO DAILY RF: 0 VITAMIN E 400 iu PO DAILY RF: 0 tizanidine 2 MG tablet 2 mg PO BID RF: 0 budesonide [Entocort EC] 3 MG capsule,delayed,extend.release 3 mg PO DAILY RF: 0 hydroxyzine HCl 25 MG tablet 1 - 2 tab PO once prn Qty: 60 RF: 0 cetirizine 10 MG tablet,chewable 10 mg PO DAILY RF: 0 acetaminophen 500 mg tablet 500 mg PO Q8H PRN (Reason: pain) Qty: 90 RF: 3 magnesium 200 MG tablet 400 mg PO DAILY RF: 0 omega 4-zoc-pcj-fish oil 1 EACH capsule 1 ea PO DAILY RF: 0 Chantix 0.5 MG tablet 0.5 mg PO PRN PRNRF: 0 fluticasone propionate 50 mcg/actuation [place],Suspension 2 spray INTRANASAL DAILY RF: 0 loratadine 10 mg Tablet 10 mg PO HS RF: 0 Narcan 4 mg/actuation [place],Non-Aerosol 1 spray INTRANASAL ONCE PRNRF: 0 sumatriptan succinate 100 mg Tablet 100 mg PO ONCE PRNRF: 0 nitroglycerin [Nitrostat] 0.4 mg Tablet, Sublingual 0.4 mg SUBLINGUAL Q5-15M PRNRF: 0 oxybutynin chloride 5 mg tablet 5 mg PO BID RF: 0 albuterol sulfate [Ventolin HFA] 200 PUFF HFA aerosol inhaler 2 puff Inhalation DAILY RF: 0 aspirin 81 mg tablet,chewable 81 mg PO BID Qty: 60 RF: 0 citalopram 20 mg tablet 20 mg PO BID RF: 0 Discharge Instructions Additional Instructions: Try to elevate L hand above heart level as much as possible for next 24 hours. Wiggle fingers L hand 10 times/hour when awake to prevent swelling. Keep dressings and splint dry and in place until return. Follow up with in 2 weeks. Take ibuprofen as prescribed for pain. Referrals: Vipul West MD [ [facility] STAFF PHYSICIAN] - (f/u with in 2 weeks) Equipment/Supplies: Splint Activity:: Activity as Tolerated Remove Dressings/Wound Care:: Do Not Remove Shower/Bathe:: Cover Diet:: As Tolerated Discharge Orders Discharge Orders: Discharge Order (Routine); Ordered 05/16/20 Ordered By: Vipul West DS: Diagnosis Discharge Diagnosis (1) Ganglion cyst of volar aspect of left wrist: Status: Acute
[2020-05-16 15:58] VITALS: BP 118/74; PULSE 69; RESP 16; TEMP 36.3; O2SAT 93
--- NOTE | 2020-05-17 16:18 | ROE_ITS ---
Date of service: 05/16/20 Time of Service: 16:27 Operative Note Operative Note DATE OF PROCEDURE: 05/16/20 PRE-OP DIAGNOSIS: Recurrent left volar wrist ganglion cyst. POST-OP DIAGNOSIS: same PROCEDURE: Excision of volar wrist ganglion cyst left, application of short arm fiberglass splint. SURGEON: Vipul West ANESTHESIA: regional PATHOLOGY: none sent COMPLICATIONS: None Patient was transported to: PACU Patient's condition: stable Indications: This is a 60-year-old white female who had a previous volar wrist ganglion cyst excised in October. She initially did well but is developed a r ecurrence of the cyst slightly more proximal to its original presentation. It is located just radial to the flexor carpi radialis tendon. It is causing her pain she like it excised. Once again I discussed with her the 10% recurrence rate following volar wrist ganglion incision. In order to help decrease this rate I have recommended splinting for 4 to 6 weeks after surgery. Procedure Description: Patient taken the operating room on 05/16/2020 she is placed supine operative table. IV regional anesthesia was administered to the left upper extremity. Once good anesthesia was obtained the left hand wrist and forearm were prepped and draped free in usual sterile fashion. I made an incision line with a previous surgical scar and extended the incision centimeter further distally and proximally. Incision was radial to the ganglion cyst. Incision was carried down to the fascia around the cyst. The cyst was then circumferentially dissected and was found to be much larger than was appreciated on it physical exam. The cyst was probably 3 cm in length. Is about a centimeter in width. I dissected the cyst down to the sheath of the flexor carpi radialis tendon. I did I did find a small communication with the wrist joint. Small window of wrist capsule was excised. All bleeders were cauterized. I did have to dissected the cyst off the radial artery. The radial artery was able to be preserved. The wound was irrigated saline solution the wound margins were infiltrated with point 5% Marcaine with epinephrine solution. Skin and subcu were approximated with interrupted 4 nylon sutures. Wounds dressed with Xeroform gauze sterile gauze 4 x 4's and ABD pad and wrapped with a Kerlix bandage. I then applied a short arm volar fiberglass splint with a 3 inch Felipe bandage. Patient's IV regional anesthesia was reversed without complications. Patient was discharged to the recovery room good condition. Patient was discharged home from the day surgery unit when fully recovered from her IV regional anesthesia. She was instructed to keep her dressings and splint dry and intact until she follows up with me in 2 weeks. She is encouraged to move her fingers 10 times an hour while awake to prevent swelling. She is given a prescription for pain ibuprofen 600 mg p.o. every 6 hours as needed.
== END 2020-05-16 16:10 | disposition home or self-care (01) ==
PROVIDERS: PCP Family Medicine; Visit Provider Orthopaedic Surgery
PROC: (CPT 25112; principal; 2020-05-16 14:30)
DX: M67.432 Ganglion, left wrist (principal)
CPT/HCPCS: 25112; J0690; J2001

== ENCOUNTER → 2020-05-31 10:06 | Outpatient (BNVA) | payer MEDICARE, MEDICAID, SELFPAY | PROVIDERS: PCP Family Medicine; Referring Provider Family Medicine; Visit Provider Orthopaedic Surgery | DX: Z47.89 Encounter for other orthopedic aftercare (principal); M67.432 Ganglion, left wrist ==

== ENCOUNTER → 2020-06-14 08:25 | Outpatient (BNVA) | payer MEDICARE, MEDICAID, SELFPAY | PROVIDERS: PCP Family Medicine; Referring Provider Family Medicine; Visit Provider Nurse Practitioner Adult Health | DX: G43.009 Migraine without aura, not intractable, without status migrainosus (principal); G43.109 Migraine with aura, not intractable, without status migrainosus | CPT/HCPCS: 99213 ==

== ENCOUNTER 2020-06-22 11:24 | Outpatient (CLI) | payer MEDICARE, MEDICAID, SELFPAY ==
--- NOTE | 2020-06-22 11:15 | DI.RAD_ITS ---
EXAM: XR KNEE RT 2V AP,LAT INDICATION: fu knee. COMPARISON: CR XR KNEE RT 2V AP,LAT from 06/22/2019 TECHNIQUE: 2D digital imaging was performed. FINDINGS: There has been no change in the right total knee prosthesis or appearance of the surrounding bone. DATA REPOSITORY: RADIATION DOSE DELIVERED:
== END 2020-06-22 11:44 ==
PROVIDERS: PCP Family Medicine; Referring Provider Family Medicine; Visit Provider Orthopaedic Surgery
DX: Z96.651 Presence of right artificial knee joint (principal); Z47.1 Aftercare following joint replacement surgery
CPT/HCPCS: 99213; 73560

== ENCOUNTER 2020-08-24 11:09 | Outpatient (CLI) | payer MEDICARE, MEDICAID, SELFPAY ==
--- NOTE | 2020-08-24 10:15 | DI.RAD_ITS ---
EXAM: XR FOOT RT LIMITED CLINICAL HISTORY: right foot pain. TECHNIQUE: 2D digital imaging was performed. COMPARISON: No exams were available for comparison FINDINGS: There is a subtle nondisplaced fracture at the level of the neck of the 5th metatarsal evident.. Mil d soft tissue swelling over this area. In addition, there is a bony excrescence benign appearance co reddy off the lateral cortex at the midshaft level of the great toe metatarsal. This measures 12 mill imeters in length by 4 millimeters with. No other osseous lesions. No erosions. No pes planus. No inferior calcaneal spur. IMPRESSION: Subtle nondisplaced transverse fracture at the neck of the 5th toe metatarsal. No radiopaque foreign body. DATA REPOSITORY: RADIATION DOSE DELIVERED:
== END 2020-08-24 11:29 ==
PROVIDERS: PCP Family Medicine; Referring Provider Family Medicine; Visit Provider Orthopaedic Surgery
DX: S92.354A Nondisplaced fracture of fifth metatarsal bone, right foot, initial encounter for closed fracture (principal); M76.71 Peroneal tendinitis, right leg; X58.XXXA Exposure to other specified factors, initial encounter
CPT/HCPCS: 99213; 73620

== ENCOUNTER 2020-10-12 18:12 | Outpatient (CLI) | payer MEDICARE, MEDICAID, SELFPAY ==
--- NOTE | 2020-10-12 13:30 | DI.RAD_ITS ---
EXAM: XR SACRUM COCCYX CLINICAL HISTORY: fall on the ice 3 weeks ago, sacral pain M53.3. TECHNIQUE: 2D digital imaging was performed. COMPARISON: No exams were available for comparison FINDINGS: BONES: No acute fracture is present. No bony destructive lesion is seen. JOINTS: No dislocation present. SOFT TISSUE: Normal. IMPRESSION: No acute fracture or dislocation. DATA REPOSITORY: RADIATION DOSE DELIVERED:
--- NOTE | 2020-10-12 13:30 | DI.RAD_ITS ---
EXAM: XR LUMBAR SPINE COMPLETE CLINICAL HISTORY: fall on the ice 3 weeks ago, lumbosacral back pain, M54.5. TECHNIQUE: 2D digital imaging was performed. COMPARISON: No exams were available for comparison FINDINGS: There are 5 lumbar type vertebral bodies. No spondylolysis or spondylolisthesis. There is a mild le ft convex thoracolumbar scoliosis. There is disc space narrowing and vacuum discs at all levels of t he lumbar spine. There are endplate osteophytes throughout the lumbar spine. Facet arthropathy is s een at all levels of the lumbar spine. No acute fractures or subluxations. Atherosclerosis. IMPRESSION: Moderately severe degenerative changes in the lumbar spine. No acute fracture or subluxation. DATA REPOSITORY: RADIATION DOSE DELIVERED:
== END 2020-10-12 18:32 ==
PROVIDERS: PCP Family Medicine; Visit Provider Nurse Practitioner Family
DX: M47.816 Spondylosis without myelopathy or radiculopathy, lumbar region (principal); M53.3 Sacrococcygeal disorders, not elsewhere classified
CPT/HCPCS: 72110; 72220

== ENCOUNTER 2020-10-27 12:14 | Outpatient (CLI) | payer MEDICARE, MEDICAID, SELFPAY ==
--- NOTE | 2020-10-27 06:00 | DI.RAD_ITS ---
EXAM: XR PAIN CLINIC SACRIOILIAC 2V CLINICAL HISTORY: Dx: Sacroiliac Joint Dysfunction TECHNIQUE: 2D and realtime digital imaging was performed. CONTRAST MATERIAL: Refer to procedure report. COMPARISON: No exams were available for comparison FINDINGS: Fluoroscopy was provided for Dr. Steve during the performance of a right sacroiliac joint injection. Please refer to the procedure report for complete details. Fluoro time: 27 seconds IMPRESSION:
[2020-10-27 12:26] VITALS: BP 110/70; PULSE 78; RESP 18; TEMP 37; O2SAT 95
--- NOTE | 2020-10-27 13:06 | PDOC.PAIN ---
Pain Clinic Procedure Note Procedure Note Procedure Note: Date of service: 2020 INTRA-ARTICULAR SI JOINT INJECTION MERI HUTCHINSON has been referred to the [facility] for intra-articular SI joint injection. COMMENTS: She was recently evaluated in our clinic on 10/12/20. She last had this procedure on 02/25/20. DX: sacroiliac joint dysfunction Patient was interviewed and the medical record reviewed. There were no medical, pharmacologic, radiographic or other structural contraindications to attempting fluoroscopically guided intra-articular SI joint injection. Risks and expected side effects as well as potential benefit of the procedure were reviewed and voiced concerns addressed. The printed consent form was signed and witnessed. Standard time-out procedure was performed. Patient was placed in the prone position on the fluoroscopy table and automated blood pressure cuff and pulse oximeter applied. The skin entry point for approaching right SI joint was identified under the most advantageous fluoroscopic view and marked. Following thorough Chlorhexadine preparation of the skin and draping and 1% lidocaine infiltration of the skin entry point and subcutaneous tissues, a 22 gauge spinal needle was placed under fluoroscopic guidance into right SI joint was identified under the most advantageous fluoroscopic view and marked. Intra-articular placement was confirmed by a clear arthrogram resulting from the injection of 0.25ml Omnipaque 240, 1.5 ml 2% lidocaine, and 40mg Depomedrol were injected intra-articularily with an initial reproduction of a significant component of the usual pain. Vital signs were stable throughout the procedure and were as recorded in the docflowsheet by the nursing staff. If given, dosages of intravenous drugs for anxiolysis and analgesia were documented in MAR. Follow up plans and appointments were discussed with the patient. Post procedure instruction was given as documented in nursing documentation and having met discharge criteria, and was discharged from the Pain Management Center. COMMENTS: If this procedure is found to be helpful, it can be completed up to 3 times per 12 months. Hipolito Steve DO, MPH Pain Management CC: Armani Ayoub
[2020-10-27 13:10] VITALS: BP 135/81; PULSE 76; RESP 15; O2SAT 97
[2020-10-27] MEDS: Omnipaque 240 MG/ML 50 ML BTL IJ (13:10)
[2020-10-27] MEDS: methylPREDNISolone ACETATE 80 MG/ML VIAL IJ (13:11)
[2020-10-27] MEDS: Lidocaine 1% Pres-Free 5 ML VIAL IJ (13:11)
== END 2020-10-27 12:15 | disposition home or self-care (01) ==
LOC: PC 12:14
PROVIDERS: PCP Family Medicine; Visit Provider Preventive Medicine Occupational Medicine
DX: M53.3 Sacrococcygeal disorders, not elsewhere classified (principal)
CPT/HCPCS: 27096; 72200; J1040; Q9967

== ENCOUNTER 2020-11-29 13:07 | Outpatient (CLI) | payer MEDICARE, MEDICAID, SELFPAY ==
--- NOTE | 2020-11-29 06:00 | DI.RAD_ITS ---
EXAM: XR PAIN CLINIC SACRIOILIAC 2V CLINICAL HISTORY: Dx: Sacroiliac Joint Dysfunction TECHNIQUE: 2D and realtime digital imaging was performed. CONTRAST MATERIAL: Refer to procedure report. COMPARISON: No exams were available for comparison FINDINGS: Fluoroscopy was provided for Dr. Steve during the performance of a sacroiliac joint injection. James cole refer to the procedure report for complete details. Fluoro time: 27 seconds IMPRESSION:
[2020-11-29 10:00] VITALS: BP 124/82; PULSE 78; RESP 17; TEMP 36.8; O2SAT 95
[2020-11-29] MEDS: methylPREDNISolone ACETATE 80 MG/ML VIAL IJ (10:25)
[2020-11-29] MEDS: Omnipaque 240 MG/ML 50 ML BTL IJ (10:25)
[2020-11-29 10:29] VITALS: BP 152/71; PULSE 84; RESP 16; O2SAT 94
--- NOTE | 2020-11-29 12:54 | PDOC.PAIN ---
Pain Clinic Procedure Note Procedure Note Procedure Note: Date of service: November 29, 2020 INTRA-ARTICULAR SI JOINT INJECTION MERI HUTCHINSON has been referred to the [facility] for intra-articular SI joint injection. COMMENTS: She has pain directly over the bilateral sacroiliac joints Dx: Sacroiliac joint dysfunction Patient was interviewed and the medical record reviewed. There were no medical, pharmacologic, radiographic or other structural contraindications to attempting fluoroscopically guided intra-articular SI joint injection. Risks and expected side effects as well as potential benefit of the procedure were reviewed and voiced concerns addressed. The printed consent form was signed and witnessed. Standard time-out procedure was performed. Patient was placed in the prone position on the fluoroscopy table and automated blood pressure cuff and pulse oximeter applied. The skin entry point for approaching the bilateral SI joints was identified under the most advantageous fluoroscopic view and marked. Following thorough Chlorhexadine preparation of the skin and draping and 1% lidocaine infiltration of the skin entry point and subcutaneous tissues, a 22 gauge spinal needle was placed under fluoroscopic guidance into the bilateral SI joints was identified under the most advantageous fluoroscopic view and marked. Intra-articular placement was confirmed by a clear arthrogram resulting from the injection of 0.25ml Omnipaque 240, 1ml 1% lidocaine, and 40mg Depomedrol were injected intra-articularily with an initial reproduction of a significant component of the usual pain. Vital signs were stable throughout the procedure and were as recorded in the docflowsheet by the nursing staff. If given, dosages of intravenous drugs for anxiolysis and analgesia were documented in MAR. Follow up plans and appointments were discussed with the patient. Post procedure instruction was given as documented in nursing documentation and having met discharge criteria, and was discharged from the Pain Management Center. COMMENTS: If this procedure is found to be effective, it can be completed up to 3 times per 12 months. Hipolito Steve DO, MPH Pain Management CC: Armani Ayoub
== END 2020-11-29 13:08 | disposition home or self-care (01) ==
LOC: PC 13:07
PROVIDERS: PCP Family Medicine; Visit Provider Preventive Medicine Occupational Medicine
DX: M53.3 Sacrococcygeal disorders, not elsewhere classified (principal)
CPT/HCPCS: 27096; 72200; J1040; Q9967

== ENCOUNTER → 2021-06-13 08:31 | Outpatient (BNVA) | payer MEDICARE, MEDICAID, SELFPAY | PROVIDERS: PCP Family Medicine; Referring Provider Family Medicine; Visit Provider Nurse Practitioner Adult Health | DX: G43.009 Migraine without aura, not intractable, without status migrainosus (principal); G43.109 Migraine with aura, not intractable, without status migrainosus | CPT/HCPCS: 99213 ==

== ENCOUNTER 2021-08-30 08:00 | Outpatient (CLI) | payer MEDICARE, MEDICAID, SELFPAY ==
--- NOTE | 2021-08-30 06:00 | DI.RAD_ITS ---
Exam(s) XR PAIN CLINIC SACRIOILIAC 2V EXAM: XR PAIN CLINIC SACRIOILIAC 2V CLINICAL HISTORY: DX: Sacroiliac joint dysfunction TECHNIQUE: 2D and realtime digital imaging was performed. CONTRAST MATERIAL: Refer to procedure report. COMPARISON: No exams were available for comparison FINDINGS: Fluoroscopy was provided for Dr. Steve during the performance of a bilateral sacroiliac joint injecti on. Please refer to the procedure report for complete details. Ka,r=7.31 mGy IMPRESSION:
[2021-08-30 08:19] VITALS: BP 133/77; PULSE 93; RESP 18; TEMP 37.3; O2SAT 97
[2021-08-30 08:45] VITALS: BP 131/82; PULSE 80; RESP 18; O2SAT 98
--- NOTE | 2021-08-30 08:45 | PDOC.PAIN ---
Pain Clinic Procedure Note Procedure Note Procedure Note: INTRA-ARTICULAR SI JOINT INJECTION MERI HUTCHINSON has been referred to the Pain Management Center for intra-articular SI joint injection. COMMENTS: Pre-procedure pain VAS = 9/10. She has had this procedure numerous times with 4-6 months of relief. Her last bilateral SIJ injections was on 11/29/20. Dx: Sacroiliac joint dysfunction Patient was interviewed and the medical record reviewed. There were no medical, pharmacologic, radiographic or other structural contraindications to attempting fluoroscopically guided intra-articular SI joint injection. Risks and expected side effects as well as potential benefit of the procedure were reviewed and voiced concerns addressed. The printed consent form was signed and witnessed. Standard time-out procedure was performed. Patient was placed in the prone position on the fluoroscopy table and automated blood pressure cuff and pulse oximeter applied. The skin entry point for approaching bilateral SI joints was identified under the most advantageous fluoroscopic view and marked. Following thorough Chlorhexadine preparation of the skin and draping and 1% lidocaine infiltration of the skin entry point and subcutaneous tissues, a 22 gauge spinal needle was placed under fluoroscopic guidance into bilateral SI joints was identified under the most advantageous fluoroscopic view and marked. Intra-articular placement was confirmed by a clear arthrogram resulting from the injection of 0.25ml Omnipaque 240, 1ml 1% lidocaine, and 40mg Depomedrol (80 mg/cc) were injected intra-articularily into each joint with an initial reproduction of a significant component of the usual pain. Vital signs were stable throughout the procedure and were as recorded in the docflowsheet by the nursing staff. If given, dosages of intravenous drugs for anxiolysis and analgesia were documented in MAR. Follow up plans and appointments were discussed with the patient. Post procedure instruction was given as documented in nursing documentation and having met discharge criteria, and was discharged from the Pain Management Center. COMMENTS: Post-procedure pain VAS = 0/10 Hipolito Steve DO, MPH [facility]-Pain Management CC: [employer]
[2021-08-30] MEDS: Lidocaine 2% Pres-Free 5 ML VIAL IJ (08:51)
[2021-08-30] MEDS: Omnipaque 240 MG/ML 50 ML BTL IJ (08:51)
[2021-08-30] MEDS: methylPREDNISolone ACETATE 80 MG/ML VIAL IJ (08:52)
== END 2021-08-30 08:01 | disposition home or self-care (01) ==
LOC: PC 08:01
PROVIDERS: PCP Family Medicine; Visit Provider Preventive Medicine Occupational Medicine
DX: M53.3 Sacrococcygeal disorders, not elsewhere classified (principal)
CPT/HCPCS: 27096; 72200; J1040; Q9967

== ENCOUNTER 2021-10-11 12:35 | Outpatient (CLI) | payer MEDICARE, MEDICAID, SELFPAY ==
[2021-10-11 12:45] VITALS: BP 137/89; PULSE 73; RESP 18; TEMP 37; O2SAT 98
[2021-10-11] MEDS: Omnipaque 240 MG/ML 50 ML BTL IJ (13:09)
[2021-10-11] MEDS: methylPREDNISolone ACETATE 80 MG/ML VIAL IJ (13:10)
--- NOTE | 2021-10-11 13:12 | PDOC.PAIN_ITS ---
Pain Clinic Procedure Note Procedure Note Procedure Note: Lumbar Epidural Steroid Injection Procedure Note COMMENTS: I previously evaluated her in the our Center here at [facility]. DX: Lumbosacral radiculopathy Pre-procedure pain VAS = 9/10. Kenyetta Hernandez has been referred to the Pain Management Center for lumbar epidural steroid injection. The patient was greeted by the nurse who verified patients name and . Patient was then taken to the fluoroscopy suite. The patient was interviewed and the medial record reviewed. There were no medical, pharmacologic, radiographic, or other structural contraindications to attempting fluoroscopically guided lumbar epidural steroid injection. Risks and expected side effects as well as potential benefits of the procedure were reviewed and voiced concerns expressed. The patient consent form was signed and witnessed. Standard patient time-out procedure was performed. The patient was placed in the prone position on the fluoroscopy table and automated blood pressure cuff and pulse oximeter applied. The skin entry point for entering/approaching the epidural space at L5-S1 and marked. Following thorough chlorhexadine preparation of the skin and draping and 1% lidocaine infiltration of the skin entry point and subcutaneous tissues, a 18 gauge Touhy needle was placed under fluoroscopic guidance and with loss of resistance technique into the epidural space. Needle tip placement and depth were aided and confirmed by fluoroscopy. There was no paresthesia or return of blood or CSF through the needle. 1 cc's of Omnipaque 240 was injected with clear epidural spread confirmed with fluoroscopy. 80mg depomedrol was injected. There was not any unusual discomfort expressed by Kenyetta Hernandez. Patient's vital signs were stable throughout the procedure and were as recorded in nursing records. Follow up plans and appointments were discussed with patient. Post procedure instruction was given as documented in nursing records and having met discharge criteria and was discharged from the Pain Management Center. COMMENTS: If this procedure is helpful, it can be completed up to 3 times per 12 months. Post-procedure pain VAS = 1/10 Hipolito Steve DO, MPH [facility]-Pain Management [facility]-Center for Pain Management
[2021-10-11 13:18] VITALS: BP 147/69; PULSE 80; RESP 18; O2SAT 94
--- NOTE | 2021-10-11 13:45 | DI.RAD_ITS ---
Exam(s) XR PAIN CLINIC LUMBAR SP 2V EXAM: XR PAIN CLINIC LUMBAR SP 2V CLINICAL HISTORY: Dx: Lumbar Radiculopathy TECHNIQUE: 2D and realtime digital imaging was performed. COMPARISON: No exams were available for comparison FINDINGS: C-arm fluoroscopy was utilized by Dr. Steve during apparent lumbar epidural injection. Hard copy show s midline epidural injection at the L5-S1 level. IMPRESSION: RADIATION DOSE DELIVERED: monico Costa= 6.1 mGy
== END 2021-10-11 12:36 | disposition home or self-care (01) ==
LOC: PC 12:35
PROVIDERS: PCP Family Medicine; Visit Provider Preventive Medicine Occupational Medicine
DX: M54.17 Radiculopathy, lumbosacral region (principal)
CPT/HCPCS: 62323; 72100; J1040; Q9967

== ENCOUNTER 2021-12-27 07:34 | Outpatient (CLI) | payer MEDICARE, MEDICAID, SELFPAY ==
[2021-12-27 07:50] VITALS: BP 120/80; PULSE 82; RESP 18; TEMP 36.2; O2SAT 95
[2021-12-27] MEDS: methylPREDNISolone ACETATE 80 MG/ML VIAL IJ (08:13)
--- NOTE | 2021-12-27 08:16 | DI.RAD_ITS ---
Exam(s) XR PAIN CLINIC LUMBAR SP 2V EXAM: XR PAIN CLINIC LUMBAR SP 2V CLINICAL HISTORY: Dx: Lumbar Radiculopathy TECHNIQUE: 2D and realtime digital imaging was performed. Radiologist not present. CONTRAST MATERIAL: None. COMPARISON: No exams were available for comparison FINDINGS: Fluoroscopy was provided for pain management therapy. Please refer to procedure report or details. Cumulative dose: Ka,r=4.81 mGy IMPRESSION: RADIATION DOSE DELIVERED:
--- NOTE | 2021-12-27 08:17 | PDOC.PAIN_ITS ---
Pain Clinic Procedure Note Procedure Note Procedure Note: Lumbar Epidural Steroid Injection Procedure Note COMMENTS: I previously evaluated her in our office. Her pre-procedure pain VAS was 7/10. Dx: Lumbosacral radiculopathy Kenyetta Hernandez has been referred to the Pain Management Center for lumbar epidural steroid injection. The patient was greeted by the nurse who verified patients name and . Patient was then taken to the fluoroscopy suite. The patient was interviewed and the medial record reviewed. There were no medical, pharmacologic, radiographic, or other structural contraindications to attempting fluoroscopically guided lumbar epidural steroid injection. Risks and expected side effects as well as potential benefits of the procedure were reviewed and voiced concerns expressed. The patient consent form was signed and witnessed. Standard patient time-out procedure was performed. The patient was placed in the prone position on the fluoroscopy table and automated blood pressure cuff and pulse oximeter applied. The skin entry point for entering/approaching the epidural space by a L5-S1 and marked. Following thorough chlorhexadine preparation of the skin and draping and 1% lidocaine infiltration of the skin entry point and subcutaneous tissues, a 18 gauge Touhy needle was placed under fluoroscopic guidance and with loss of resistance technique into the epidural space. Needle tip placement and depth were aided and confirmed by fluoroscopy. There was no paresthesia or return of blood or CSF through the needle. 1 cc's of Omnipaque 240 was injected with clear epidural spread confirmed with fluoroscopy. 80mg depomedrol was injected. There was not any unusual discomfort expressed by Kenyetta Hernandez. Patient's vital signs were stable throughout the procedure and were as recorded in nursing records. Follow up plans and appointments were discussed with patient. Post procedure instruction was given as documented in nursing records and having met discharge criteria and was discharged from the Pain Management Center. COMMENTS: If this procedure is helpful, it can be completed up to 3 times per 12 months. Hipolito Steve DO, MPH [facility]-Pain Management [facility]-Center for Pain Management
[2021-12-27] MEDS: Omnipaque 240 MG/ML 50 ML BTL IJ (08:23)
[2021-12-27 08:24] VITALS: BP 105/74; PULSE 87; RESP 18; O2SAT 95
== END 2021-12-27 07:35 | disposition home or self-care (01) ==
LOC: PC 07:34
PROVIDERS: PCP Family Medicine; Visit Provider Preventive Medicine Occupational Medicine
DX: M54.17 Radiculopathy, lumbosacral region (principal)
CPT/HCPCS: 62323; 72100; J1040; Q9967

== ENCOUNTER 2022-03-07 14:49 | Outpatient (CLI) | payer MEDICARE, MEDICAID, SELFPAY ==
--- NOTE | 2022-03-07 06:00 | DI.RAD_ITS ---
Exam(s) XR PAIN CLINIC SACRIOILIAC 2V EXAM: XR PAIN CLINIC SACRIOILIAC 2V CLINICAL HISTORY: Dx: Sacroiliac Joint Dysfunction TECHNIQUE: 2D and realtime digital imaging was performed. Radiologist not present. CONTRAST MATERIAL: None. COMPARISON: No exams were available for comparison FINDINGS: Fluoroscopy was provided for pain management therapy. Please refer to procedure report or details. Cumulative dose: Ka,r=6.76 mGy IMPRESSION: RADIATION DOSE DELIVERED:
[2022-03-07 14:57] VITALS: BP 131/77; PULSE 76; RESP 20; TEMP 36.9; O2SAT 98
[2022-03-07 15:18] VITALS: BP 121/66; PULSE 68; RESP 20; O2SAT 94
--- NOTE | 2022-03-07 15:18 | PDOC.PAIN ---
Pain Clinic Procedure Note Procedure Note Procedure Note: INTRA-ARTICULAR SI JOINT INJECTION Kenyetta Hernandez has been referred to the Pain Management Center for intra-articular SI joint injection. COMMENTS: I evaluated her in the office on 02/28/22. Her pre-procedure pain VAS was 10/10. Dx: Bilateral sacroiliac joint dysfunction Patient was interviewed and the medical record reviewed. There were no medical, pharmacologic, radiographic or other structural contraindications to attempting fluoroscopically guided intra-articular SI joint injection. Risks and expected side effects as well as potential benefit of the procedure were reviewed and voiced concerns addressed. The printed consent form was signed and witnessed. Standard time-out procedure was performed. Patient was placed in the prone position on the fluoroscopy table and automated blood pressure cuff and pulse oximeter applied. The skin entry point for approaching bilateral SI joints was identified under the most advantageous fluoroscopic view and marked. Following thorough Chlorhexadine preparation of the skin and draping and 1% lidocaine infiltration of the skin entry point and subcutaneous tissues, a 22 gauge spinal needle was placed under fluoroscopic guidance into the bilateral SI joints was identified under the most advantageous fluoroscopic view and marked. Intra-articular placement was confirmed by a clear arthrogram resulting from the injection of 0.25ml Omnipaque 240, 1ml 1% lidocaine, and 40mg Depomedrol were injected intra-articularily into each joint with an initial reproduction of a significant component of the usual pain. Each needle was flushed with 1 cc of 1% Lidocaine and removed. Vital signs were stable throughout the procedure and were as recorded in the docflowsheet by the nursing staff. If given, dosages of intravenous drugs for anxiolysis and analgesia were documented in MAR. Follow up plans and appointments were discussed with the patient. Post procedure instruction was given as documented in nursing documentation and having met discharge criteria, and was discharged from the Pain Management Center. COMMENTS: Post-procedure pain VAS was 6/10. Hipolito Steve DO, MPH [facility]-Pain Management [facility]-Center for Pain Management CC: [employer]
[2022-03-07] MEDS: methylPREDNISolone ACETATE 80 MG/ML VIAL IJ (15:21)
[2022-03-07] MEDS: Omnipaque 240 MG/ML 50 ML BTL IJ (15:21)
== END 2022-03-07 14:50 | disposition home or self-care (01) ==
LOC: PC 14:49
PROVIDERS: PCP Family Medicine; Visit Provider Preventive Medicine Occupational Medicine
DX: M53.3 Sacrococcygeal disorders, not elsewhere classified (principal)
CPT/HCPCS: 27096; 72200; J1040; Q9967

== ENCOUNTER 2022-06-20 07:35 | Outpatient (CLI) | payer MEDICARE, MEDICAID, SELFPAY ==
--- NOTE | 2022-06-20 06:00 | DI.RAD_ITS ---
Exam(s) XR PAIN CLINIC SACRIOILIAC 2V EXAM: XR PAIN CLINIC SACRIOILIAC 2V CLINICAL HISTORY: Dx: Sacroiliac Joint dysfunction TECHNIQUE: 2D and realtime digital imaging was performed. COMPARISON: No exams were available for comparison FINDINGS: C-arm fluoroscopy was utilized by Dr. Steve during bilateral SI joint injections. Hard copies confirm a bilateral SI joint injections. IMPRESSION: RADIATION DOSE DELIVERED: Igorr=4.48 mGy
[2022-06-20 07:54] VITALS: BP 121/58; PULSE 75; RESP 20; TEMP 36.9; O2SAT 95
[2022-06-20 08:22] VITALS: BP 146/90; PULSE 65; RESP 16; O2SAT 94
--- NOTE | 2022-06-20 08:25 | PDOC.PAIN ---
Pain Clinic Procedure Note Procedure Note Procedure Note: INTRA-ARTICULAR SI JOINT INJECTION Kenyetta Hernandez has been referred to the Pain Management Center for intra-articular SI joint injection. COMMENTS: She last had this procedure on 03/07/22 and 08/30/21 with excellent results. Pre-procedure pain VAS was 9/10. Dx: Sacroiliac joint dysfunction Patient was interviewed and the medical record reviewed. There were no medical, pharmacologic, radiographic or other structural contraindications to attempting fluoroscopically guided intra-articular SI joint injection. Risks and expected side effects as well as potential benefit of the procedure were reviewed and voiced concerns addressed. The printed consent form was signed and witnessed. Standard time-out procedure was performed. Patient was placed in the prone position on the fluoroscopy table and automated blood pressure cuff and pulse oximeter applied. The skin entry point for approaching the bilateral SI joints was identified under the most advantageous fluoroscopic view and marked. Following thorough Chlorhexadine preparation of the skin and draping and 1% lidocaine infiltration of the skin entry point and subcutaneous tissues, a 22 gauge spinal needle was placed under fluoroscopic guidance into the bilateral SI joints was identified under the most advantageous fluoroscopic view and marked. Intra-articular placement was confirmed by a clear arthrogram resulting from the injection of 0.25ml Omnipaque 240, 1ml 1% lidocaine, and 40mg Depomedrol were injected intra-articularily with an initial reproduction of a significant component of the usual pain. Vital signs were stable throughout the procedure and were as recorded in the docflowsheet by the nursing staff. If given, dosages of intravenous drugs for anxiolysis and analgesia were documented in MAR. Follow up plans and appointments were discussed with the patient. Post procedure instruction was given as documented in nursing documentation and having met discharge criteria, and was discharged from the Pain Management Center. COMMENTS: Post-procedure pain VAS was 7/10. Hipolito Steve DO, MPH [facility]-Pain Management [facility] [place] CC: [employer]
[2022-06-20] MEDS: methylPREDNISolone ACETATE 80 MG/ML VIAL IJ (08:30)
[2022-06-20] MEDS: Omnipaque 240 MG/ML 50 ML BTL IJ (08:31)
[2022-06-20] MEDS: Lidocaine 1% Pres-Free 5 ML VIAL IJ (08:31)
== END 2022-06-20 07:36 | disposition home or self-care (01) ==
PROVIDERS: PCP Family Medicine; Visit Provider Preventive Medicine Occupational Medicine
DX: M53.3 Sacrococcygeal disorders, not elsewhere classified (principal)
CPT/HCPCS: 27096; 72200; J1040; Q9967

== ENCOUNTER 2022-11-29 14:38 | Outpatient (CLI) | payer MEDICARE, MEDICAID, SELFPAY ==
--- NOTE | 2022-11-29 10:43 | DI.RAD_ITS ---
Exam(s) XR KNEE LT 4V AP,LAT,CJ,PAT EXAM: XR KNEE LT 4V AP,LAT,CJ,PAT CLINICAL HISTORY: left knee pain. TECHNIQUE: 2D digital imaging was performed. Three views. COMPARISON: CR XR KNEE RT 4V AP,LAT,CJ,PAT from 11/29/2022 FINDINGS: BONES: No acute fracture is present. No bony destructive lesion is seen. JOINTS: The knee is normally aligned. No joint effusion is seen. Joint spaces are maintained. Mini mal degenerative changes. SOFT TISSUE: Normal. IMPRESSION: Minimal degenerative changes. DATA REPOSITORY: RADIATION DOSE DELIVERED:
--- NOTE | 2022-11-29 10:43 | DI.RAD_ITS ---
Exam(s) XR KNEE RT 4V AP,LAT,CJ,PAT EXAM: XR KNEE RT 4V AP,LAT,CJ,PAT CLINICAL HISTORY: right knee pain. TECHNIQUE: 2D digital imaging was performed. Three views. COMPARISON: CR XR KNEE RT 2V AP,LAT from 06/22/2020 FINDINGS: BONES: No acute fracture is present. No bony destructive lesion is seen. There has been no change in the alignment of the total right knee prosthesis. JOINTS: No joint effusion is seen. SOFT TISSUE: Normal. IMPRESSION: Stable appearance of total knee prosthesis. DATA REPOSITORY: RADIATION DOSE DELIVERED:
== END 2022-11-29 14:39 | disposition home or self-care (01) ==
LOC: DIORS 14:39
PROVIDERS: PCP Family Medicine; Referring Provider Family Medicine; Visit Provider Physician Assistant
DX: S80.02XA Contusion of left knee, initial encounter (principal); W19.XXXA Unspecified fall, initial encounter; Z96.651 Presence of right artificial knee joint
CPT/HCPCS: 99214; 73564

== ENCOUNTER 2023-12-25 15:47 | Outpatient (CLI) | payer MEDICARE, MEDICAID, SELFPAY ==
--- NOTE | 2023-12-25 06:00 | DI.RAD_ITS ---
Exam(s) XR PAIN CLINIC SACRIOILIAC 2V EXAM: XR PAIN CLINIC SACRIOILIAC 2V CLINICAL HISTORY: Sacroiliac Joint Dysfunction TECHNIQUE: 2D and realtime digital imaging was performed. Radiologist not present. CONTRAST MATERIAL: None. COMPARISON: No exams were available for comparison FINDINGS: Fluoroscopy was provided for pain management therapy. Please refer to procedure report or details. Radiation Exposure Index: Ka,r=10.8 mGy IMPRESSION: As above. RADIATION DOSE DELIVERED:
[2023-12-25 15:57] VITALS: BP 131/59; PULSE 70; RESP 20; TEMP 36.7; O2SAT 96
--- NOTE | 2023-12-25 16:30 | PDOC.PAIN_ITS ---
Date of service: 12/25/23 Time of Service: 16:30 Pain Managment Procedure Note Procedure Note Procedure Note: PROCEDURE NOTE BILATERAL INTRA-ARTICULAR SACROILIAC JOINT INJECTION Date of Service: December 25, 2023 Patient: Kenyetta Hernandez Provider: Hipolito Steve DO, MPH COMMENTS: I previously evaluated the patient in the office and their symptoms in relation to the sacroiliac joint pain have remained the same. Pre-operative diagnosis: Sacroiliac joint dysfunction Post-operative diagnosis: Same Pre-procedure pain: VAS= 6/10 Kenyetta Hernandez has been referred to our [facility] for [facility] for a Bilateral intra-articular Sacroiliac joint injection. Kenyetta was interviewed and the medical record reviewed. There were no medical, pharmacologic, radiographic or other structural contraindications to attempting a fluoroscopically-guided, contrast-enhanced, intra-articular Sacroiliac joint injection. The risks, benefits, and potential side effects of this procedure were reviewed with the patient. Questions and concerns were addressed. After it was clear that Kenyetta was fully informed about the procedure, the printed consent form was signed by the patient and myself. Kenyetta was placed in the prone position on the fluoroscopy table and an automated blood pressure cuff, 3 lead EKG, and pulse oximeter were applied. The skin entry point for approaching the Left sacroiliac joint was identified under the most advantageous fluoroscopic view and marked. Following thorough Chlorhexadine preparation of the skin and draping with sterile surgical drapes, 2 mls of 1% lidocaine was infiltrated into the skin at the entry point and the surrounding subcutaneous tissues. Next, a 3.5 22G spinal needle was placed under fluoroscopic guidance into the Left sacroiliac joint. Intra-articular placement was confirmed by a clear arthrogram resulting from the injection of 0.25ml of Omnipaque-240. Next, 1 ml of Depo- Medrol 40 mg/ml was injected intra- articularly with an initial reproduction of a significant component of the usual pain. This was followed with 1 ml of 1% Lidocaine. The needle was then removed without difficulty. (49 ml of Omnipaque-240 was wasted). The exact procedure was completed on the opposite sacroiliac joint. Kenyetta's vital signs were stable throughout the procedure and were as recorded in nursing records. Follow up plans and appointments were discussed with Kenyetta. Post procedure instructions were given as documented in nursing records. Having met discharge criteria, Kenyetta was discharged from the Center for [facility]. COMMENTS: Post-procedure pain: VAS= 0/10. If the patient receives at least 50% improvement in pain and/or function for at least 3 months, this procedure can be repeated if needed. I personally performed this entire procedure. HIPOLITO STEVE DO, MPH [facility]-subspecialty board certification in Pain Medicine [facility]-Center for Pain Management
[2023-12-25 16:34] VITALS: BP 129/79; PULSE 77; RESP 16; O2SAT 97
[2023-12-25] MEDS: Nerve Block Tray 1 EACH MC (16:40)
[2023-12-25] MEDS: Omnipaque 240 MG/ML 50 ML BTL IJ (16:40)
[2023-12-25] MEDS: methylPREDNISolone ACETATE 40 MG/ML VIAL IJ (16:41)
== END 2023-12-25 15:48 | disposition home or self-care (01) ==
LOC: PC 15:47
PROVIDERS: PCP Family Medicine; Visit Provider Preventive Medicine Occupational Medicine
DX: M54.50 Low back pain, unspecified (principal); M46.1 Sacroiliitis, not elsewhere classified
CPT/HCPCS: 00123; 27096; 72200; J0665; J1010; Q9967

== ENCOUNTER 2024-04-29 16:15 | Outpatient (CLI) | payer MEDICARE, MEDICAID, SELFPAY ==
--- NOTE | 2024-04-29 06:00 | DI.RAD_ITS ---
Exam(s) XR PAIN CLINIC SACRIOILIAC 2V EXAM: XR PAIN CLINIC SACRIOILIAC 2V CLINICAL HISTORY: DX: Sacroiliiac Dysfunction TECHNIQUE: 2D and realtime digital imaging was performed. Radiologist not present. CONTRAST MATERIAL: None. COMPARISON: No exams were available for comparison FINDINGS: Fluoroscopy was provided for pain management therapy. Please refer to procedure report or details. Radiation Exposure Index: Ka,r=5.5 mGy IMPRESSION: As above. RADIATION DOSE DELIVERED:
[2024-04-29 16:23] VITALS: BP 135/72; PULSE 68; RESP 20; TEMP 36.7; O2SAT 98
[2024-04-29 16:52] VITALS: PULSE 67; RESP 18; O2SAT 94
[2024-04-29 17:00] VITALS: PULSE 68; RESP 18; O2SAT 89
[2024-04-29 17:03] VITALS: BP 119/66; PULSE 68
[2024-04-29] MEDS: Omnipaque 240 MG/ML 50 ML BTL IJ (17:07)
[2024-04-29] MEDS: methylPREDNISolone ACETATE 80 MG/ML VIAL IJ (17:08)
[2024-04-29] MEDS: Nerve Block Tray 1 EACH MC (17:08)
--- NOTE | 2024-05-04 08:42 | PDOC.PAIN_ITS ---
Date of service: 04/29/24 Time of Service: 17:00 Pain Managment Procedure Note Procedure Note Procedure Note: PROCEDURE NOTE BILATERAL INTRA-ARTICULAR SACROILIAC JOINT INJECTION Date of Service: April 29, 2024 Patient: Kenyetta Hernandez Provider: Hipolito Steve DO, MPH COMMENTS: I previously evaluated the patient in the office and their symptoms in relation to the sacroiliac joint pain have remained the same. She last had this procedure on 12/25/23 and had >3 months of >50% pain improvement. Her pain has returned. Pre-operative diagnosis: Sacroiliac joint dysfunction Post-operative diagnosis: Same Pre-procedure pain: VAS= 8/10 Kenyetta Hernandez has been referred to our Center for [facility] Center for a Bilateral intra-articular Sacroiliac joint injection. Kenyetta was interviewed and the medical record reviewed. There were no medical, pharmacologic, radiographic or other structural contraindications to attempting a fluoroscopically-guided, contrast-enhanced, intra-articular Sacroiliac joint injection. The risks, benefits, and potential side effects of this procedure were reviewed with the patient. Questions and concerns were addressed. After it was clear that Kenyetta was fully informed about the procedure, the printed consent form was signed by the patient and myself. Kenyetta was placed in the prone position on the fluoroscopy table and an automated blood pressure cuff, 3 lead EKG, and pulse oximeter were applied. The skin entry point for approaching the Left sacroiliac joint was identified under the most advantageous fluoroscopic view and marked. Following thorough Chlorhexadine preparation of the skin and draping with sterile surgical drapes, 2 mls of 1% lidocaine was infiltrated into the skin at the entry point and the surrounding subcutaneous tissues. Next, a 3.5 22G spinal needle was placed under fluoroscopic guidance into the Left sacroiliac joint. Intra-articular placement was confirmed by a clear arthrogram resulting from the injection of 0.25ml of Omnipaque-240. Next, 1 ml of Depo- Medrol 40 mg/ml was injected intra- articularly with an initial reproduction of a significant component of the usual pain. This was followed with 1 ml of 1% Lidocaine. The needle was then removed without difficulty. (49 ml of Omnipaque-240 was wasted). The exact procedure was completed on the opposite sacroiliac joint. Kenyetta's vital signs were stable throughout the procedure and were as recorded in nursing records. Follow up plans and appointments were discussed with Kenyetta. Post procedure instructions were given as documented in nursing records. Having met discharge criteria, Kenyetta was discharged from the Center [facility]. COMMENTS: Post-procedure pain: VAS= 0/10. If the patient receives at least 50% improvement in pain and/or function for at least 3 months, this procedure can be repeated if needed. I personally performed this entire procedure. HIPOLITO STEVE DO, MPH [facility]-subspecialty board certification in Pain Medicine [facility] [place] [facility]
== END 2024-04-29 16:16 | disposition home or self-care (01) ==
LOC: PC 16:15
PROVIDERS: PCP Family Medicine; Visit Provider Preventive Medicine Occupational Medicine
DX: M53.3 Sacrococcygeal disorders, not elsewhere classified (principal); M54.50 Low back pain, unspecified
CPT/HCPCS: 27096; 72200; J1010; Q9967

== ENCOUNTER → 2024-12-29 13:41 | Outpatient (BNVA) | payer MEDICARE, MEDICAID, SELFPAY | PROVIDERS: PCP Family Medicine; Referring Provider Family Medicine; Visit Provider Psychiatry & Neurology Neurology | DX: R29.6 Repeated falls (principal); R26.89 Other abnormalities of gait and mobility; G25.0 Essential tremor | CPT/HCPCS: 99215; G2212 ==

== ENCOUNTER 2025-02-02 07:17 | Outpatient (CLI) | payer MEDICARE, MEDICAID, SELFPAY ==
[2025-02-02 07:33] VITALS: BP 119/76; PULSE 90; RESP 18; TEMP 36.3; O2SAT 96
[2025-02-02 08:03] VITALS: PULSE 98; O2SAT 93
--- NOTE | 2025-02-02 08:07 | DI.RAD_ITS ---
Exam(s) XR PAIN CLINIC SACRIOILIAC 2V EXAM: XR PAIN CLINIC SACRIOILIAC 2V CLINICAL HISTORY: Dx: Sacroiliac Joint Dysfunction TECHNIQUE: 2D and realtime digital imaging was performed. CONTRAST MATERIAL: Refer to procedure report. COMPARISON: No exams were available for comparison FINDINGS: Fluoroscopy was provided for Dr. Garrison during the performance of a sacroiliac joint injections. P lease refer to the procedure report for complete details. Ka,r=10.3 mGy IMPRESSION: RADIATION DOSE DELIVERED: 0.0 0.0 0
[2025-02-02 08:10] VITALS: PULSE 92; O2SAT 94
--- NOTE | 2025-02-02 08:18 | PDOC.PAIN_ITS ---
Date of service: 02/02/25 Time of Service: 08:21 Pain Managment Procedure Note Procedure Note Procedure Note: ?Sacroiliac Joint Steroid Injection ? Location: Bilateral SI Joints? Pre-procedure Diagnosis: Sacroiliitis, not elsewhere classified - M46.1 ? Post-procedure Diagnosis:? The same as above ? Sedation:? NONE ? Medication: Depo-Medrol 40 mg, bupivacaine 0.5% 1 mL, Omnipaque 0.25 mL per joint ? Estimated blood loss:? less than 2 cc ? Surgeon:? Ketan Garrison MD ? COMMENT: PT HAD GREATER THAN 50% RELIEF OF HER PAIN FOR GREATER THAN 6 MONTHS FROM PREVIOUS INJECTION ? Procedure Detail:? The procedure and potential risks were explained to the patient and informed written consent was obtained. The patient was escorted to the procedure room and placed in the prone position. Pillows were utilized fo r proper positioning and comfort. Time out was performed in the procedure room with nursing staff confirming the patient's identity, procedure to be performed, allergies, and any blood thinning or anti-platelet medications. The patient's lumbosacral area was prepped with ChloraPrep and draped in a sterile fashion. Sterile technique was maintained throughout the procedure.? Sterile gloves were used, a face mask was worn, and new single dose vials of all medications were used with the top being swabbed with alcohol and given time to dry prior to withdrawal of medication. Lidocaine 1% was used to anesthetize the skin. With fluoroscopic guidance, a 22-gauge 3.5 spinal needle was advanced into the posteroinferior aspect of the Bilateral SI joint. Confirmation of intra-articular position of the needle tip was obtained with injection of 0.25cc of Omnipaque 240 contrast which showed appropriate spread within the joint.? Following negative aspiration, 40mg of methylprednisolone mixed with 1 mL of bupivacaine 0.5% was injected.? The needle was gently removed. ?The patient tolerated the procedure well and was transported to the recovery area for observation and discharge instructions.? Permanent images saved and recorded. Plan:? Follow up prn. PAIN PRE PROCEDURE 06/02 POST PROCEDURE 0/10 COMMENT: 100 % BETTER AFTER INJECTION Coding Conscious Sedation used for procedure: No CPT Codes: SI Joint Inj; incl Fluoro * BILATERAL* - [id number] ([id number]) Additional Codes: Date of Service (92120) Date of service: 02/02/25
[2025-02-02] MEDS: Nerve Block Tray 1 EACH MC (08:24)
[2025-02-02] MEDS: Bupivacaine 0.5% Pres-Free 10 ML VIAL IJ (08:24)
[2025-02-02] MEDS: methylPREDNISolone ACETATE 80 MG/ML VIAL IJ (08:25)
== END 2025-02-02 07:18 | disposition home or self-care (01) ==
LOC: PC 07:17
PROVIDERS: PCP Family Medicine; Visit Provider Anesthesiology Pain Medicine
DX: M46.1 Sacroiliitis, not elsewhere classified (principal); M25.551 Pain in right hip; M25.552 Pain in left hip
CPT/HCPCS: 27096; 72200; J0665; J1010

== ENCOUNTER → 2025-02-10 12:21 | Outpatient (BNVA) | payer MEDICARE, MEDICAID, SELFPAY | PROVIDERS: PCP Family Medicine; Referring Provider Family Medicine; Visit Provider Psychiatry & Neurology Neurology | DX: R29.6 Repeated falls (principal); R26.89 Other abnormalities of gait and mobility; G25.0 Essential tremor; I10 Essential (primary) hypertension; J44.9 Chronic obstructive pulmonary disease, unspecified | CPT/HCPCS: 99213 ==

== ENCOUNTER → 2025-06-23 10:58 | Outpatient (BNVA) | payer MEDICARE, MEDICAID, SELFPAY | PROVIDERS: PCP Family Medicine; Referring Provider Family Medicine; Visit Provider Psychiatry & Neurology Neurology | DX: R29.6 Repeated falls (principal); R26.89 Other abnormalities of gait and mobility; G25.0 Essential tremor; J44.9 Chronic obstructive pulmonary disease, unspecified; I10 Essential (primary) hypertension | CPT/HCPCS: 99213 ==

== ENCOUNTER 2025-07-14 09:35 | Outpatient (CLI) | payer MEDICARE, MEDICAID, SELFPAY ==
--- NOTE | 2025-07-14 06:00 | DI.RAD_ITS ---
Exam(s) XR PAIN CLINIC SACRIOILIAC 2V EXAM: XR PAIN CLINIC SACRIOILIAC 2V CLINICAL HISTORY: DX: Sacroiliac Dysfunction TECHNIQUE: 2D and realtime digital imaging was performed. CONTRAST MATERIAL: Refer to procedure report. COMPARISON: No exams were available for comparison FINDINGS: Fluoroscopy was provided for Dr. Garrison during the performance of a bilateral sacroiliac joint injection.. Please refer to the procedure report for complete details. Ka,r=8.74 mGy IMPRESSION: RADIATION DOSE DELIVERED: 0.0 0.0 0
[2025-07-14 09:57] VITALS: BP 134/65; PULSE 80; RESP 20; TEMP 37; O2SAT 100
[2025-07-14 10:39] VITALS: O2SAT 95
[2025-07-14 10:50] VITALS: O2SAT 95
--- NOTE | 2025-07-14 10:52 | PDOC.PAIN ---
Date of service: 07/14/25 Time of Service: 10:57 Pain Managment Procedure Note Procedure Note Procedure Note: ?Sacroiliac Joint Steroid Injection ? Location: Bilateral SI Joints? Pre-procedure Diagnosis: Sacroiliitis, not elsewhere classified - M46.1 ? Post-procedure Diagnosis:? The same as above ? Sedation:? NONE ? Medication: Depo-Medrol 40 mg, bupivacaine 0.5% 1 mL, Omnipaque 0.25 mL per joint ? Estimated blood loss:? less than 2 cc ? Surgeon:? Ketan Garrison MD ? COMMENT: PT HAD GREATER THAN 50% RELIEF OF HER PAIN FOR GREATER THAN 6 MONTHS FROM PREVIOUS INJECTION ? Procedure Detail:? The procedure and potential risks were explained to the patient and informed written consent was obtained. The patient was escorted to the procedure room and placed in the prone position. Pillows were utilized for proper positioning and comfort. Time out was performed in the procedure room with nursing staff confirming the patient's identity, procedure to be performed, allergies, and any blood thinning or anti-platelet medications. The patient's lumbosacral area was prepped with ChloraPrep and draped in a sterile fashion. Sterile technique was maintained throughout the procedure.? Sterile gloves were used, a face mask was worn, and new single dose vials of all medications were used with the top being swabbed with alcohol and given time to dry prior to withdrawal of medication. Lidocaine 1% was used to anesthetize the skin. With fluoroscopic guidance, a 22-gauge 3.5 spinal needle was advanced into the posteroinferior aspect of the Bilateral SI joint. Confirmation of intra-articular position of the needle tip was obtained with injection of 0.25cc of Omnipaque 240 contrast which showed appropriate spread within the joint (right) extraarticular left.? Following negative aspiration, 40mg of methylprednisolone mixed with 1 mL of bupivacaine 0.5% was injected.? The needle was gently removed. ?The patient tolerated the procedure well and was discharged home with instructions.? Permanent images saved and recorded. Plan:? Follow up prn. PAIN PRE PROCEDURE 06/02 POST PROCEDURE 11/30 COMMENT: 70 % BETTER AFTER INJECTION. Consider updating lumbar MRI if patient still has pain as the last 1 was from 2020. Coding Conscious Sedation used for procedure: No CPT Codes: SI Joint Inj; incl Fluoro * BILATERAL* - [id number] ([id number]~G5) 50 - BILATERAL PROCEDURE Additional Codes: Date of Service () Diagnoses: Sacroiliitis, not elsewhere classified - M46.1
[2025-07-14] MEDS: Omnipaque 240 MG/ML 50 ML BTL IJ (10:55)
[2025-07-14] MEDS: Nerve Block Tray 1 EACH MC (10:56)
[2025-07-14] MEDS: Bupivacaine 0.5% Pres-Free 10 ML VIAL IJ (10:56)
[2025-07-14] MEDS: methylPREDNISolone ACETATE 80 MG/ML VIAL IJ (10:56)
== END 2025-07-14 09:36 | disposition home or self-care (01) ==
LOC: PC 09:36
PROVIDERS: PCP Family Medicine; Visit Provider Anesthesiology Pain Medicine
DX: M54.50 Low back pain, unspecified (principal); M46.1 Sacroiliitis, not elsewhere classified
CPT/HCPCS: 27096; 72200; J0665; J1010; Q9967